=== PATIENT | female | born 1965 | race Caucasian/White ===

== ENCOUNTER 2018-06-16 23:17 | Emergency (ER) | payer OTHER, SELFPAY ==
[2018-06-16 23:29] VITALS: BP 183/96; PULSE 96; RESP 16; TEMP 37.1; O2SAT 95; BMI 48.9
[2018-06-16 23:42] LABS: Bilirubin Urine UA NEGATIVE (NEGATIVE); Color Urine UA YELLOW; Glucose Urine UA NEGATIVE (Negative); Ketones Urine UA TRACE (NEGATIVE); Leukocyte Esterase Urine UA TRACE (NEGATIVE); Nitrite Urine UA NEGATIVE (Negative); Occult Blood Urine UA 3+ (Negative); Protein Urine UA NEGATIVE (Negative); Specific Gravity Urine UA 1.015 (1.000-1.035); Urobilinogen Urine UA 0.2 E.U./dL (0.2); pH Urine UA 6.5 (4.5-8.0)
[2018-06-16 23:46] LABS: Appearance Urine UA Cloudy
[2018-06-16] MEDS: SODIUM CHLORIDE 0.9% 1,000 ML 1000 ML IV (23:59)
--- NOTE | 2018-06-17 | DI.US.S_ITS ---
PROCEDURE: US RENAL COMPLETE INDICATIONS: LEFT FLANK PAIN; HISTORY STONES TECHNIQUE: Real-time scanning was performed of the kidneys and bladder, with image documentation. COMPARISON: Merged With [facility], CT, CT KIDNEY URETER BLADDER (KUB), 06/17/2018, 0:50. FINDINGS: Kidneys: Patient is status post prior partial right nephrectomy. Kidneys are normal in size. Right kidney measures 10.6 cm long; left kidney measures 13.0 cm long. Right renal cortical thickness is 1.4 cm; left renal cortical thickness is 2.3 cm. multiple bilateral renal stones are noted. Right renal stone measures 1.0 cm in maximum diameter. 2 left renal stones measure 1.6 and 0.8 cm in maximum diameter. Moderate left-sided hydronephrosis noted. Bladder: Urinary bladder was completely decompressed at time of imaging. Miscellaneous: No free pelvic fluid. IMPRESSION: 1. Multiple bilateral renal stones. 2. Moderate left-sided hydronephrosis. Dictated by: Rebecca Reid MD, PhD on 06/17/2018 at 7:41 Approved by: Rebecca Reid MD, PhD on 06/17/2018 at 7:49
[2018-06-17 00:04] LABS: Bacteria Urine Few (2-10); RBC Urine 30-100/HPF (0-5/HPF); Squamous Epithelial Cell Urine 1-5 /HPF; WBC Urine 0-1/HPF (0-5/HPF)
[2018-06-17 00:05] LABS: Culture Indicated Urine Specimen Cultured
[2018-06-17 00:20] LABS: Alanine Aminotransferase 35 IU/L (9-52); Albumin 4.2 g/dL (3.5-5.0); Albumin Globulin Ratio 1.6 (1.0-2.8); Alkaline Phosphatase 83 U/L (38-126); Aspartate Aminotransferase 37 IU/L (14-36); Bilirubin Total 0.4 mg/dL (0.2-1.3); Blood Urea Nitrogen 28 mg/dL (7-17); Calcium 11.1 mg/dL (8.4-10.2); Carbon Dioxide 30 mmol/L (22-32); Chloride 106 mmol/L (98-107); Estimated Glomerular Filt Rate > 60.0 mL/min (>60); Globulin 2.7 g/dL (1.7-4.1); Glucose 145 mg/dL (70-100); HEMOLYSIS 17 (0-50); Potassium 3.9 mmol/L (3.4-5.1); Sodium 141 mmol/L (137-145); Total Protein 6.9 g/dL (6.3-8.2)
[2018-06-17 00:23] LABS: Basophils Absolute Auto 100 /uL (0-100); Basophils Percent Auto 0.7 % (0-2); Eosinophils Absolute Auto 100 /uL (0-450); Hematocrit 49.4 % (36-46); Hemoglobin 16.7 g/dL (12.0-16.0); Lymphocytes Absolute Auto 1200 /uL (1100-4500); Mean Corpuscular HGB Conc 33.9 % (30-36); Mean Corpuscular Hemoglobin 31.6 PG (26-34); Mean Corpuscular Volume 93.1 fL (80-100); Monocytes Absolute Auto 1300 /uL (0-900); Monocytes Percent Auto 9.1 % (3-14); Neutrophils Absolute Auto 11900 /uL (1500-7000); Neutrophils Percent Auto 81.2 % (50-75); Platelet Count 217 X10^3/uL (150-400); Red Cell Distribution Width 14.2 % (11.6-14.8); White Blood Cell Count 14.6 X10^3/uL (4.5-11.0)
[2018-06-17 00:24] LABS: Add Manual Diff / Slide Review SLIDE REVIEW
--- NOTE | 2018-06-17 00:36 | DI.CT.S_ITS ---
PROCEDURE: CT KIDNEY URETER BLADDER (KUB) INDICATIONS: Left flank pain, hydronephrosis, partial nephrectomy on Right from cancer TECHNIQUE: Noncontrast 5 mm thick sections acquired from the diaphragms to the symphysis. 5 mm thick coronal and sagittal reformats were then performed. For radiation dose reduction, the following was used: automated exposure control, adjustment of mA and/or kV according to patient size. COMPARISON: [facility], CT, IVP (ABD & PEL WWO CONTRAST), 01/26/2017, 9:50. [facility], CT, KIDNEY/ URETER/BLADDER, 08/27/2011, 14:17. FINDINGS: Image quality: Excellent. Lung bases: Lung bases are clear. Heart size is normal. Urinary system: There are multiple renal calculi bilaterally. There is a 6 mm stone in the proximal left ureter just beyond the left ureterovesical junction causing mild left hydronephrosis. The left kidney is edematous and demonstrates moderate perinephric stranding and a small amount of perinephric fluid. Approximately additional 15 stones are seen in the left kidney measuring up to 8 mm. there are 15-20 stones in the right kidney. No right hydronephrosis or hydroureter. There is partial right nephrectomy. Bladder wall thickness is normal; no calcified bladder stones. Other solid organs: There is chronic pneumobilia. Liver is normal in size. Gallbladder is absent. Pancreas is normal in contours. Spleen is normal in size. Stable 1 cm left adrenal nodule with hazy density compatible with an adenoma. Peritoneum and bowel: Unenhanced bowel loops demonstrate normal wall thickness and caliber. Multiple colonic diverticula are present. No free fluid or air. Nodes and vessels: No retroperitoneal or mesenteric adenopathy by size criteria. Aorta and inferior vena cava are normal in caliber. Abdominal wall: There is a small umbilical hernia. Pelvis: Uterus is unremarkable. No adnexal mass. No free pelvic fluid. No inguinal hernias or adenopathy. Bones: No suspicious bony lesions. No vertebral body compression fractures. IMPRESSION: 1. Nephrolithiasis bilaterally. There is a 6 mm of patent stone in the proximal left ureter just beyond the left UPJ. There is mild left hydronephrosis and moderate left perinephric stranding. 2. Pneumobilia. 3. Small umbilical hernia. 4. Small left adrenal adenoma. No significant discrepancy with the evening or night nurse supervisor radiology preliminary report. Dictated by: Charis Valdovinos M.D. on 06/17/2018 at 7:52 Approved by: Charis Valdovinos M.D. on 06/17/2018 at 8:03
--- NOTE | 2018-06-17 02:05 | ED_ITS ---
HPI - Female Genitourinary General Chief complaint: Urogenital-Female Stated complaint: Left flank pain, thinks kidney stone Time Seen by Provider: 06/16/18 23:22 Source: patient Mode of arrival: ambulatory Limitations: no limitations History of Present Illness HPI Narrative: 53-year-old female nonsmoker with history of kidney stones presents with a chief complaint of left flank pain that started while at rest earlier tonight. She states the pain was sharp and stabbing and without provocation or palliation. She was nauseated but denies any vomiting. She has had no fever or shaking chills. she states it feels quite similar to prior kidney stones. She was seen by the medics on [facility] and given IM Toradol sent here for evaluation Onset (ago): hour(s) Female Urogenital Radiation: L Flank Severity: severe Quality: Aching and Burning Relieving factors: none Exacerbating factors: none Patient : No Related Data Home Medications Medication Instructions Recorded Confirmed albuterol sulfate [Ventolin HFA] 1 puff INH PRN #0 10/31/11 levothyroxine [Synthroid] 75 mcg PO QDAY #0 10/31/11 ACETAMINOPHEN #0 10/06/15 ibuprofen #0 10/06/15 tramadol #0 10/06/15 Previous Rx's Medication Instructions Recorded ciprofloxacin HCl [Cipro] 500 mg PO BID #20 tab 10/07/15 hydrocodone-acetaminophen 1 tab PO Q4-6H PRN #10 tab 06/17/18 ketorolac 10 mg PO Q6H PRN #14 tab 06/17/18 ondansetron 4 mg PO TID-QID PRN #10 tab 06/17/18 tamsulosin [Flomax] 0.4 mg PO DAILY #10 cap 06/17/18 Allergies Allergy/AdvReac Type Severity Reaction Status Date / Time codeine [CODEINE] AdvReac Mild nausea/vomi Verified 06/16/18 23:29 ting Review of Systems Constitutional Denies chills, Denies fever(s), Denies lethargy and Denies weakness Eyes Denies change in vision, Denies eye discharge, Denies irritation and Denies loss of vision ENT Ears, Nose, Mouth, and Throat: Denies change in voice, Denies neck pain and Denies sore throat Cardiovascular Denies chest pain, Denies irregular heart rhythm, Denies lightheadedness, Denies palpitations, Denies dyspnea, Denies dyspnea on exertion and Denies orthopnea Respiratory Denies cough, Denies dyspnea, Denies dyspnea on exertion and Denies wheezing Gastrointestinal Gastrointestinal: Denies abdominal pain, Denies change in bowel habits, Denies diarrhea, Denies nausea and Denies vomiting Genitourinary Denies hematuria, Reports flank pain, Denies urinary incontinence and Denies urinary urgency Musculoskeletal Denies neck pain Integumentary/Breasts Denies pruritus, Denies erythema, Denies rash and Denies wounds Neurologic Denies confusion, Denies loss of vision and Denies weakness Psychiatric Denies anxiety, Denies confusion, Denies depression, Denies homicidal ideation and Denies suicidal ideation Endocrine Denies palpitations Hematologic/Lymphatic Denies easy bruising Allergic/Immunologic Denies wheezing Exam Narrative Exam Narrative: GENERAL: 53-year-old female appears stated age, appears relatively comfortable HEAD: Atraumatic. Normocephalic. No temporal or scalp tenderness. EYES: Pupils equal round and reactive. Extraocular motions intact. No scleral icterus. No injection or drainage. ENT: Nose without bleeding, purulent drainage or septal hematoma. Throat without erythema, tonsillar hypertrophy or exudate. Uvula midline. Airway patent. NECK: Trachea midline. No JVD or lymphadenopathy. Supple, nontender, no meningeal signs. CARDIOVASCULAR: Regular rate and rhythm without murmurs, gallops, or rubs. RESPIRATORY: Clear to auscultation. Breath sounds equal bilaterally. No wheezes, rales, or rhonchi. GASTROINTESTINAL: Abdomen soft, non-tender, nondistended. No hepato-s plenomegaly, or palpable masses. No guarding. EXTREMITIES: No clubbing, cyanosis, or edema. No joint tenderness, effusion, or edema noted. BACK: Nontender without deformity or crepitance. No flank tenderness. NEURO: AOx3. SKIN: No rash or erythema. Initial Vital Signs Initial Vital Signs: Vital Signs Temperature 98.7 F 06/16/18 23:29 Pulse Rate 96 H 06/16/18 23:29 Respiratory Rate 16 06/16/18 23:29 Blood Pressure 183/96 H 06/16/18 23:29 Pulse Oximetry 95 06/16/18 23:29 Course Orders Ordered: ED Orders 06/16/18 23:30 Urinalysis and Microscopic Stat Urine Culture Stat 06/16/18 23:59 Complete Blood Count AUTO DIFF Stat Comprehensive Metabolic Panel Stat 06/17/18 00:00 US renal complete Stat 06/17/18 00:36 CT kidney ureter bladder (KUB) Stat Discontinued Medications Hydrocodone Bitart/Acetaminophen (Vicodin Prepack) 1 bottle MISC SEEINSTR ONE Stop: 06/17/18 02:12 Last Admin: 06/17/18 02:16 Dose: 1 bottle Sodium Chloride (Normal Saline 0.9%) 1,000 mls @ 1,000 mls/hr IV BOLUS ONE Stop: 06/17/18 00:44 Last Infusion: 06/17/18 02:05 Dose: 0 mls/hr Admin: 06/16/18 23:59 Dose: 1,000 mls/hr Ketorolac Tromethamine (Toradol) 15 mg IV NOW ONE Stop: 06/16/18 23:46 Last Admin: 06/16/18 23:59 Dose: Not Given Ketorolac Tromethamine (Toradol) 60 mg IM NOW ONE Stop: 06/17/18 02:12 Last Admin: 06/17/18 02:17 Dose: 60 mg Vital Signs - 8 hr 06/16/18 23:29 Temperature 98.7 F Pulse Rate 96 H Respiratory Rate 16 Blood Pressure 183/96 H Pulse Oximetry 95 MDM - Female Genitourinary Lab Data Result diagrams: 06/16/18 23:59 06/16/18 23:59 Lab Results 06/16/18 06/16/18 06/16/18 Range/Units 23:30 23:59 23:59 WBC 14.6 H (4.5-11.0) X10^3/uL RBC 5.30 H (4.0-5.2) X10^6/uL Hgb 16.7 H (12.0-16.0) g/dL Hct 49.4 H (36-46) % MCV 93.1 (80-100) fL MCH 31.6 (26-34) PG MCHC 33.9 (30-36) % RDW 14.2 (11.6-14.8) % Plt Count 217 (150-400) X10^3/uL Neut % (Auto) 81.2 H (50-75) % Lymph % (Auto) 8.0 L (25-40) % [place] % (Auto) 9.1 (3-14) % Eos % (Auto) 1.0 L (2-4) % Baso % (Auto) 0.7 (0-2) % Neut # (Auto) 75985 H (3734-6823) /uL Lymph # (Auto) 1200 (9613-1481) /uL [place] # (Auto) 1300 H (0-900) /uL Eos # (Auto) 100 (0-450) /uL Baso # (Auto) 100 (0-100) /uL RBC Morphology Normal morphology Sodium 141 (137-145) mmol/L Potassium 3.9 (3.4-5.1) mmol/L Chloride 106 (98-107) mmol/L Carbon Dioxide 30 (22-32) mmol/L BUN 28 H (7-17) mg/dL Creatinine 0.80 (0.52-1.04) mg/dL Estimated GFR > 60.0 (>60) mL/min BUN/Creatinine Ratio 35.0 H (6-22) Glucose 145 H (70-100) mg/dL Calcium 11.1 H (8.4-10.2) mg/dL Total Bilirubin 0.4 (0.2-1.3) mg/dL AST 37 H (14-36) IU/L ALT 35 (9-52) IU/L Alkaline Phosphatase 83 (38-126) U/L Total Protein 6.9 (6.3-8.2) g/dL Albumin 4.2 (3.5-5.0) g/dL Globulin 2.7 (1.7-4.1) g/dL Albumin/Globulin Ratio 1.6 (1.0-2.8) Urine Color Yellow Urine Appearance Cloudy Urine pH 6.5 (4.5-8.0) Ur Specific [place] 1.015 (1.000-1.035) Urine Protein Negative (Negative) Urine Glucose (UA) Negative (Negative) g/dL Urine Ketones Trace H (NEGATIVE) Urine Occult Blood 3+ H (Negative) Urine Nitrate Negative (Negative) Urine Bilirubin Negative (NEGATIVE) Urine Urobilinogen 0.2 (0.2) E.U./dL Ur Leukocyte Esterase Trace H (NEGATIVE) Urine RBC 30-100/hpf H (0-5/HPF) Urine WBC 0-1/hpf (0-5/HPF) Ur Squamous Epith Cells 1-5 /hpf Urine Bacteria Few (2-10) H (None) Ur Culture Indicated? Specimen cultured Imaging Data US - abdomen: Radiologist's impression: Bilateral kidney stones, suspect left ureteral calculus creating mild hydro ureteral nephrosis CT scan - abdomen: Radiologist's impression: Multiple bilateral kidney stones. Proximal and mid left ureteral calculi grating moderate left hydronephrosis and significant left perinephric stranding. [facility] Narrative Medical decision making narrative: Patient presents with severe flank pain and a history of kidney stones. She was given Toradol prior to her arrival and is th largely asymptomatic for the majority of her visit. Ultrasound noted hydro and therefore we progressed to a CT which notes a 5 x 4 mm stone. She does have a mild elevated white count but no signs of infection on the urine. She has an established relationship with a local urologist and will follow up closely with them. She has been given return precautions. Discharge Plan Departure Patient Disposition: Home Clinical Impression: Kidney calculi Instructions: DI for Kidney Stones Activity Restrictions/Additional Instructions: *You have been diagnosed with [ left-sided kidney stones] *What to do: *Take medications as directed *Follow up with your urologist in 2-3 days, call for an appointment. Let them know you were seen in the Emergency Department and that we ask that you be seen in follow up *Return to ER if you should have any new, worsening or concerning symptoms, such as [ fever, shaking chills, worsening pain, persistent vomiting or other bothersome symptoms] Prescriptions: New hydrocodone-acetaminophen 5-325 mg tablet 1 tab PO Q4-6H PRN (Reason: pain) Qty: 10 RF: 0 ketorolac 10 mg tablet 10 mg PO Q6H PRN (Reason: pain) Qty: 14 RF: 0 tamsulosin [Flomax] 0.4 mg capsule 0.4 mg PO DAILY Qty: 10 RF: 0 ondansetron 4 mg tablet,disintegrating 4 mg PO TID-QID PRN (Reason: nausea and vomiting) Qty: 10 RF: 0 No Action levothyroxine [Synthroid] 75 MCG tablet 75 mcg PO QDAY Qty: 0 RF: 0 albuterol sulfate [Ventolin HFA] 90 MCG/PUFF HFA aerosol inhaler 1 puff INH PRN Qty: 0 RF: 0 ibuprofen 800 MG tablet Qty: 0 RF: 0 tramadol 50 MG tablet Qty: 0 RF: 0 ACETAMINOPHEN Qty: 0 RF: 0 ciprofloxacin HCl [Cipro] 500 MG tablet 500 mg PO BID Qty: 20 RF: 0 Referrals: Matthew Golden DO [Non-Staff] - Loy Lee MD [Primary Care Provider] -
[2018-06-17] MEDS: HYDROCODONE/ACET 5/325 PREPACK 1 BOTTLE MISC (02:16)
[2018-06-17] MEDS: KETOROLAC 60 MG/2 ML VIAL IM (02:17)
[2018-06-17 02:18] LABS: RBC Morphology Normal Morphology
[2018-06-17 02:28] VITALS: BP 179/91; PULSE 79; RESP 18; O2SAT 100
--- NOTE | 2018-06-17 02:31 | PC.NURSE ---
pt c/o left flank pain woke her from sleeping. called medics [place] who gave pt torodal and told her to follow up here. pt has known kidney stones, states recently evaluated by urologist. stones now causing pain.
== END 2018-06-17 02:31 | disposition home or self-care (01) ==
PROVIDERS: Emergency Provider Emergency Medicine; Family Provider Family Medicine; PCP Family Medicine
DX: N20.0 Calculus of kidney (principal)
CPT/HCPCS: 36591; 74176; 76770; 80053; 81001; 85025; 87086; 96360; 96361; 96372; 99283; 99284; J1885

== ENCOUNTER 2019-05-14 20:23 | Emergency (ER) | payer OTHER, SELFPAY ==
--- NOTE | 2019-05-14 20:30 | ED_ITS ---
HPI - Neck Pain/Injury General Chief Complaint: Back Pain/Injury Stated Complaint: thinks kidney stones Time Seen by Provider: 05/14/19 20:28 Source: patient and old records reviewed Mode of arrival: Ambulatory Limitations: no limitations History of Present Illness HPI Narrative: This is a 54-year-old female who comes in with complaint of left flank pain and concern for kidney stone. Patient states she has had kidney stones in the past she lives on [facility] and states that they gave her Toradol about 5:00 a.m. this evening which typically resolves her pain but did not completely it did improve it. She has not had fevers. She has had nausea but no vomiting. She states the pain is in the typical location but the lack of improvement with Toradol is different. She denies any radiation to the front of her abdomen. She denies any diarrhea constipation or stool changes. She denies any frequency, dysuria urgency no vaginal bleeding or discharge. She normally takes narcotic pain medication she missed 1 dose today. She states there is also a lump found in her back that her primary care shoulder was a lipoma today but it was tender when they were palpating it. Patient has a history of chronic back pain which is why she takes pain medication. She states she has an L4 herniated disc and is followed regularly by her physician for this. Patient states she has a history of hyperparathyroidism and had her parathyroids removed. Related Data Home Medications Medication Instructions Recorded Confirmed albuterol sulfate [Ventolin HFA] 1 puff INH PRN #0 10/31/11 levothyroxine [Synthroid] 75 mcg PO QDAY #0 10/31/11 ACETAMINOPHEN #0 10/06/15 ibuprofen #0 10/06/15 tramadol #0 10/06/15 Previous Rx's Medication Instructions Recorded ciprofloxacin HCl [Cipro] 500 mg PO BID #20 tab 10/07/15 hydrocodone-acetaminophen 1 tab PO Q4-6H PRN #10 tab 06/17/18 ketorolac 10 mg PO Q6H PRN #14 tab 06/17/18 ondansetron 4 mg PO TID-QID PRN #10 tab 06/17/18 tamsulosin [Flomax] 0.4 mg PO DAILY #10 cap 06/17/18 ketorolac 10 mg PO Q6H PRN 5 Days #7 tab 05/14/19 Allergies Allergy/AdvReac Type Severity Reaction Status Date / Time codeine [CODEINE] AdvReac Mild nausea/vomi Verified 06/16/18 23:29 ting Review of Systems Review of Systems ROS Unobtainable: All systems reviewed & are unremarkable except as noted in HPI and below Patient History Social History Smoking Status: Current every day smoker Exam Initial Vital Signs Initial Vital Signs: Vital Signs Temperature 98.7 F 05/14/19 21:18 Pulse Rate 100 H 05/14/19 21:18 Respiratory Rate 20 05/14/19 21:18 Blood Pressure 199/102 H 05/14/19 21:18 Pulse Oximetry 95 05/14/19 21:18 GENERAL: Alert and oriented x three, obese female in [id number] distress HEENT: Head normocephalic, atraumatic, EOMI, pupils reactive, face symmetric, moist mucous membranes NECK: Supple, full range of motion CARDIOVASCULAR: Regular rate and rhythm without murmurs, rubs or gallops. RESPIRATORY: Breath sounds equal bilaterally, no wheezes rales or rhonchi. ABDOMEN: Soft, nontender. Normoactive bowel sounds all 4 quadrants. No gua rding or rebound, rigidity, no mass : No CVA tenderness BACK: No cervical, thoracic or lumbar vertebral point tenderness. Patient has a several cm lump in the left flank, mildly tender. Unable to visualize any skin changes, feels to be deep in the muscle/subcutaneous tissue. Patient has normal range of motion. Patient's gait is normal. Muscle strength is 5/5 in lower extremities. Sensation intact bilateral lower extremities. EXTREMITIES: Normal range of motion, no clubbing or edema. Neurovascularly intact NEUROLOGICAL: Cranial nerves II through XII grossly intact. Moving all extrem ities SKIN: Warm, dry, no petechiae, no rashes or lesions. Course Orders Ordered: ED Orders 05/14/19 20:45 Urinalysis and Microscopic Stat 05/14/19 20:50 CT kidney ureter bladder (KUB) Stat 05/14/19 21:10 Complete Blood Count AUTO DIFF Stat Comprehensive Metabolic Panel Stat Lipase Stat Discontinued Medications Hydrocodone Bitart/Acetaminophen (Vicodin 5/325 Prepack) 1 bottle MISC SEEINSTR ONE Stop: 05/14/19 22:22 Last Admin: 05/14/19 22:35 Dose: 1 bottle Documented by: SHRUTHI Morphine Sulfate (Morphine) 4 mg IV NOW ONE Stop: 05/14/19 20:52 Last Admin: 05/14/19 21:15 Dose: 4 mg Documented by: SEBAS Vital Signs Vital signs: Vital Signs - 8 hr 05/14/19 21:18 05/14/19 22:44 Temperature 98.7 F Pulse Rate 100 H 68 Respiratory Rate 20 16 Blood Pressure 199/102 H Pulse Oximetry 95 98 MDM - Neck Pain/Injury Lab Data Attestation: I reviewed the patient's lab results. Result diagrams: 05/14/19 21:10 05/14/19 21:10 Labs: Lab Results 05/14/19 05/14/19 05/14/19 Range/Units 20:45 21:10 21:10 WBC 10.8 (4.5-11.0) X10^3/uL RBC 5.15 (4.0-5.2) X10^6/uL Hgb 16.2 H (12.0-16.0) g/dL Hct 47.8 H (36-46) % MCV 92.9 (80-100) fL MCH 31.4 (26-34) PG MCHC 33.8 (30-36) % RDW 14.1 (11.6-14.8) % Plt Count 227 (150-400) X10^3/uL Neut % (Auto) 83.2 H (50-75) % Lymph % (Auto) 9.8 L (25-40) % [place] % (Auto) 3.4 (3-14) % Eos % (Auto) 0.7 L (2-4) % Baso % (Auto) 2.9 H (0-2) % Neut # (Auto) 9000 H (9424-9453) /uL Lymph # (Auto) 1100 (2967-3182) /uL [place] # (Auto) 400 (0-900) /uL Eos # (Auto) 100 (0-450) /uL Baso # (Auto) 300 H (0-100) /uL Sodium 144 (137-145) mmol/L Potassium 4.6 (3.4-5.1) mmol/L Chloride 107 (98-107) mmol/L Carbon Dioxide 31 (22-32) mmol/L BUN 19 H (7-17) mg/dL Creatinine 0.50 L (0.52-1.04) mg/dL Estimated GFR > 60.0 (>60) mL/min BUN/Creatinine Ratio 38.0 H (6-22) Glucose 161 H (70-100) mg/dL Calcium 11.4 H (8.4-10.2) mg/dL Total Bilirubin 0.5 (0.2-1.3) mg/dL AST 40 H (14-36) IU/L ALT 28 (<35) IU/L Alkaline Phosphatase 75 (38-126) U/L Total Protein 7.3 (6.3-8.2) g/dL Albumin 4.1 (3.5-5.0) g/dL Globulin 3.2 (1.7-4.1) g/dL Albumin/Globulin Ratio 1.3 (1.0-2.8) Lipase (23-300) U/L Urine Color Yellow Urine Appearance Clear Urine pH 6.5 (4.5-8.0) Ur Specific [place] 1.020 (1.000-1.035) Urine Protein Negative (Negative) Urine Glucose (UA) Negative (Negative) g/dL Urine Ketones Negative (NEGATIVE) Urine Occult Blood Negative (Negative) Urine Nitrate Negative (Negative) Urine Bilirubin Negative (NEGATIVE) Urine Urobilinogen 0.2 (0.2) E.U./dL Ur Leukocyte Esterase Negative (NEGATIVE) Urine RBC None seen (0-5/HPF) Urine WBC None seen (0-5/HPF) Ur Squamous Epith Cells 0-1 /hpf (0-5/HPF) Amorphous Sediment 1+ Urine Bacteria None seen (None) Ur Culture Indicated? Cult not indicated 05/14/19 Range/Units 21:10 WBC (4.5-11.0) X10^3/uL RBC (4.0-5.2) X10^6/uL Hgb (12.0-16.0) g/dL Hct (36-46) % MCV (80-100) fL MCH (26-34) PG MCHC (30-36) % RDW (11.6-14.8) % Plt Count (150-400) X10^3/uL Neut % (Auto) (50-75) % Lymph % (Auto) (25-40) % [place] % (Auto) (3-14) % Eos % (Auto) (2-4) % Baso % (Auto) (0-2) % Neut # (Auto) (6050-4512) /uL Lymph # (Auto) (4824-0781) /uL [place] # (Auto) (0-900) /uL Eos # (Auto) (0-450) /uL Baso # (Auto) (0-100) /uL Sodium (137-145) mmol/L Potassium (3.4-5.1) mmol/L Chloride (98-107) mmol/L Carbon Dioxide (22-32) mmol/L BUN (7-17) mg/dL Creatinine (0.52-1.04) mg/dL Estimated GFR (>60) mL/min BUN/Creatinine Ratio (6-22) Glucose (70-100) mg/dL Calcium (8.4-10.2) mg/dL Total Bilirubin (0.2-1.3) mg/dL AST (14-36) IU/L ALT (<35) IU/L Alkaline Phosphatase (38-126) U/L Total Protein (6.3-8.2) g/dL Albumin (3.5-5.0) g/dL Globulin (1.7-4.1) g/dL Albumin/Globulin Ratio (1.0-2.8) Lipase 167 (23-300) U/L Urine Color Urine Appearance Urine pH (4.5-8.0) Ur Specific [place] (1.000-1.035) Urine Protein (Negative) Urine Glucose (UA) (Negative) g/dL Urine Ketones (NEGATIVE) Urine Occult Blood (Negative) Urine Nitrate (Negative) Urine Bilirubin (NEGATIVE) Urine Urobilinogen (0.2) E.U./dL Ur Leukocyte Esterase (NEGATIVE) Urine RBC (0-5/HPF) Urine WBC (0-5/HPF) Ur Squamous Epith Cells (0-5/HPF) Amorphous Sediment Urine Bacteria (None) Ur Culture Indicated? Imaging Data CT scan - abdomen/pelvis: Radiologist's Impression: [address] [address] [address] Scan Report Signed Patient: Petye Harris RMR#: [id number] : 1965Acct:[id number] Age/Sex: 54 / FDate of Service: 05/14/19 Loc: ED Accession Number: [id number] Procedure: CT kidney ureter bladder (KUB) Ordering Provider: Kirstie Gutierrez D.O. PROCEDURE: CT KIDNEY URETER BLADDER (KUB) INDICATIONS: left flank pain, hx of stones TECHNIQUE: Noncontrast 5 mm thick sections acquired from the diaphragms to the symphysis. 5 mm thick coronal and sagittal reformats were then performed. For radiation dose reduction, the following was used: automated exposure control, adjustment of mA and/or kV according to patient size. COMPARISON: [facility], CT, CT KIDNEY URETER BLADDER (KUB), 06/17/2018, 0:50. FINDINGS: Image quality: Excellent. Lung bases: Lung bases are clear. Heart size is normal. Urinary system: Surgical clips adjacent to the right kidney. Right kidney scarring. Both kidneys are normal in size. Multiple kidney stones bilaterally. No obstructing calculus. The previously seen obstructing calculi in the proximal left ureter are no longer present. No hydronephrosis or perinephric fat stranding. Both ureters appear non-dilated throughout their expected courses. Bladder wall thickness is normal; no calcified bladder stones. Other solid organs: Liver is normal in size. Gallbladder is absent. Bile ducts are dilated with pneumobilia. Calcifications in the uncinate process and head of the pancreas do to chronic calcific pancreatitis. Pancreas is normal in contours. Spleen is normal in size. Benign left adrenal adenoma. Peritoneum and bowel: Diverticulosis. Unenhanced bowel loops demonstrate normal wall thickness and caliber. No free fluid or air. Nodes and vessels: No retroperitoneal or mesenteric adenopathy by size criteria. Aorta and inferior vena cava are normal in caliber. Abdominal wall: Small amount of fluid in the periumbilical hernia. Pelvis: No free pelvic fluid. No inguinal hernias or adenopathy. Bones: No suspicious bony lesions. No vertebral body compression fractures. Extensive degenerative change at L4-L5 and L5-S1. IMPRESSION: 1. Increased biliary ductal dilatation. Similar pneumobilia. 2. No obstructing kidney stone. Multiple nonobstructing kidney stones bilaterally which are similar in appearance. 3. The appendix is normal. 4. Small amount of free fluid in the periumbilical hernia similar to prior exam. Incidental findings: Diverticulosis. Chronic calcific pancreatitis. Dictated by: Landon Dacosta M.D. on 05/14/2019 at 21:41 Approved by: Landon Dacosta M.D. on 05/14/2019 at 21:53 MDM Narrative Medical decision making narrative: Patient comes in with left flank pain, states that she has similar symptoms with kidney stones but that it did improve with Toradol which typically and she also has feels like a lipoma that is a little bit tender. Plan for some further evaluation, urine and labs show no leukocytosis with hemoglobin of 16 and hematocrit of 47 similar to June of 2018 patient has neutrophils of 83%, patient has electrolytes in normal range with a BUN of 19 and normal renal function. Glucose is 161, patient does have an e levated calcium of 11.4 which is consistent with prior with prior labs, bilirubin is negative, AST is 40 with normal ALT and normal lipase. Urine shows other than 0-1 squamous epithelials. On imaging no kidney stones are noted in the ureter but patient does have multiple kidney stones within the kidney itself bilaterally. Gallbladder is absent and bile ducts are dilated with pneumobilia. Calcifications in the uncinate process due to chronic calcific pancreatitis. Benign left adrenal adenoma. Patient has a small amount of fluid in the gagan umbilical hernia, patient has extensive degenerative changes L4-L5 and L5-S1. Appendix is normal. And small amount of free fluid is similar to prior exam. Patient does have some left flank pain this evening. She is improved with Toradol that she received from medics and after medication here she feels She does have what feels like a lipoma is mildly tender but patient does not have any physical signs of infection or abscess in that area there is no redness or skin changes, she has been afebrile and the area feels more firm and very consistent with a lipoma and does not feel consistent with an abscess or fluid collection. Patient does have known degenerative changes which are redemonstrated on her CT possibly this could be her back pain although typically that is lower and radiates more down her leg. Plan for watchful waiting discu ssed with patient. She has a general surgeon she follows with at [facility] and plans to follow up regarding lump in her back for further evaluation. Discharge Plan Departure Patient Disposition: Home Clinical Impression: Flank pain Discharge Date/Time: 05/14/19 22:46 Instructions: DI for Flank Pain Activity Restrictions/Additional Instructions: Follow up with primary care this week for recheck. Take medication as prescribed, this medication can make you sleepy do not drive, perform hazardous activities or make any major decisions while taking it. I suspect you have a lipoma in your left flank and recommend follow up with your general surgeon at [facility] for evaluation if this continues to seem to be the source of your pain. Return to ER for fevers greater than 100.4F, passing out, new chest pain or shortness of breath black or bloody stools, persistent vomiting, rapidly worsening pain, new redness, skin changes or signs of infection over the lump in your back, loss of bowel or bladder control or new numbness, weakness of your lower extremities. Prescriptions: New ketorolac 10 mg tablet 10 mg PO Q6H PRN (Reason: pain) 5 Days Qty: 7 RF: 0 No Action levothyroxine [Synthroid] 75 MCG tablet 75 mcg PO QDAY Qty: 0 RF: 0 albuterol sulfate [Ventolin HFA] 90 MCG/PUFF HFA aerosol inhaler 1 puff INH PRN Qty: 0 RF: 0 ibuprofen 800 MG tablet Qty: 0 RF: 0 tramadol 50 MG tablet Qty: 0 RF: 0 ACETAMINOPHEN Qty: 0 RF: 0 ciprofloxacin HCl [Cipro] 500 MG tablet 500 mg PO BID Qty: 20 RF: 0 hydrocodone-acetaminophen 5-325 mg tablet 1 tab PO Q4-6H PRN (Reason: pain) Qty: 10 RF: 0 ketorolac 10 mg tablet 10 mg PO Q6H PRN (Reason: pain) Qty: 14 RF: 0 tamsulosin [Flomax] 0.4 mg capsule 0.4 mg PO DAILY Qty: 10 RF: 0 ondansetron 4 mg tablet,disintegrating 4 mg PO TID-QID PRN (Reason: nausea and vomiting) Qty: 10 RF: 0 Referrals: Loy Lee MD [Primary Care Provider] -
--- NOTE | 2019-05-14 20:50 | DI.CT.S_ITS ---
PROCEDURE: CT KIDNEY URETER BLADDER (KUB) INDICATIONS: left flank pain, hx of stones TECHNIQUE: Noncontrast 5 mm thick sections acquired from the diaphragms to the symphysis. 5 mm thick coronal and sagittal reformats were then performed. For radiation dose reduction, the following was used: automated exposure control, adjustment of mA and/or kV according to patient size. COMPARISON: [facility], CT, CT KIDNEY URETER BLADDER (KUB), 06/17/2018, 0:50. FINDINGS: Image quality: Excellent. Lung bases: Lung bases are clear. Heart size is normal. Urinary system: Surgical clips adjacent to the right kidney. Right kidney scarring. Both kidneys are normal in size. Multiple kidney stones bilaterally. No obstructing calculus. The previously seen obstructing calculi in the proximal left ureter are no longer present. No hydronephrosis or perinephric fat stranding. Both ureters appear non-dilated throughout their expected courses. Bladder wall thickness is normal; no calcified bladder stones. Other solid organs: Liver is normal in size. Gallbladder is absent. Bile ducts are dilated with pneumobilia. Calcifications in the uncinate process and head of the pancreas do to chronic calcific pancreatitis. Pancreas is normal in contours. Spleen is normal in size. Benign left adrenal adenoma. Peritoneum and bowel: Diverticulosis. Unenhanced bowel loops demonstrate normal wall thickness and caliber. No free fluid or air. Nodes and vessels: No retroperitoneal or mesenteric adenopathy by size criteria. Aorta and inferior vena cava are normal in caliber. Abdominal wall: Small amount of fluid in the periumbilical hernia. Pelvis: No free pelvic fluid. No inguinal hernias or adenopathy. Bones: No suspicious bony lesions. No vertebral body compression fractures. Extensive degenerative change at L4-L5 and L5-S1. IMPRESSION: 1. Increased biliary ductal dilatation. Similar pneumobilia. 2. No obstructing kidney stone. Multiple nonobstructing kidney stones bilaterally which are similar in appearance. 3. The appendix is normal. 4. Small amount of free fluid in the periumbilical hernia similar to prior exam. Incidental findings: Diverticulosis. Chronic calcific pancreatitis. Dictated by: Landon Dacosta M.D. on 05/14/2019 at 21:41 Approved by: Landon Dacosta M.D. on 05/14/2019 at 21:53
[2019-05-14 20:58] LABS: Bacteria Urine None Seen; RBC Urine None Seen (0-5/HPF); WBC Urine None Seen (0-5/HPF)
[2019-05-14 20:59] LABS: Appearance Urine UA CLEAR; Bilirubin Urine UA NEGATIVE (NEGATIVE); Color Urine UA YELLOW; Glucose Urine UA NEGATIVE (Negative); Ketones Urine UA NEGATIVE (NEGATIVE); Leukocyte Esterase Urine UA NEGATIVE (NEGATIVE); Nitrite Urine UA NEGATIVE (Negative); Occult Blood Urine UA NEGATIVE (Negative); Protein Urine UA NEGATIVE (Negative); Urobilinogen Urine UA 0.2 E.U./dL (0.2)
[2019-05-14 21:06] LABS: pH Urine UA 6.5 (4.5-8.0)
[2019-05-14 21:11] LABS: Amorphous Sediment Urine 1+; Culture Indicated Urine Cult Not Indicated; Squamous Epithelial Cell Urine 0-1 /HPF (0-5/HPF)
[2019-05-14] MEDS: MORPHINE 4 MG/ML INJ IV (21:15)
[2019-05-14 21:18] VITALS: BP 199/102; PULSE 100; RESP 20; TEMP 37.1; O2SAT 95; BMI 48.9
[2019-05-14 21:22] LABS: Add Manual Diff / Slide Review NO; Basophils Absolute Auto 300 /uL (0-100); Basophils Percent Auto 2.9 % (0-2); Eosinophils Absolute Auto 100 /uL (0-450); Eosinophils Percent Auto 0.7 % (2-4); Hematocrit 47.8 % (36-46); Hemoglobin 16.2 g/dL (12.0-16.0); Lymphocytes Absolute Auto 1100 /uL (1100-4500); Lymphocytes Percent Auto 9.8 % (25-40); Mean Corpuscular HGB Conc 33.8 % (30-36); Mean Corpuscular Hemoglobin 31.4 PG (26-34); Mean Corpuscular Volume 92.9 fL (80-100); Monocytes Absolute Auto 400 /uL (0-900); Monocytes Percent Auto 3.4 % (3-14); Neutrophils Absolute Auto 9000 /uL (1500-7000); Neutrophils Percent Auto 83.2 % (50-75); Platelet Count 227 X10^3/uL (150-400); Red Blood Cell Count 5.15 X10^6/uL (4.0-5.2); Red Cell Distribution Width 14.1 % (11.6-14.8); White Blood Cell Count 10.8 X10^3/uL (4.5-11.0)
[2019-05-14 21:32] LABS: Lipase 167 U/L (23-300)
[2019-05-14 21:33] LABS: Alanine Aminotransferase 28 IU/L (<35); Albumin 4.1 g/dL (3.5-5.0); Albumin Globulin Ratio 1.3 (1.0-2.8); Alkaline Phosphatase 75 U/L (38-126); Bilirubin Total 0.5 mg/dL (0.2-1.3); Blood Urea Nitrogen 19 mg/dL (7-17); Calcium 11.4 mg/dL (8.4-10.2); Carbon Dioxide 31 mmol/L (22-32); Chloride 107 mmol/L (98-107); Estimated Glomerular Filt Rate > 60.0 mL/min (>60); Globulin 3.2 g/dL (1.7-4.1); Glucose 161 mg/dL (70-100); Sodium 144 mmol/L (137-145); Total Protein 7.3 g/dL (6.3-8.2)
[2019-05-14 21:34] LABS: HEMOLYSIS 103 (0-50)
[2019-05-14 21:36] LABS: Aspartate Aminotransferase 40 IU/L (14-36)
[2019-05-14 21:37] LABS: Potassium 4.6 mmol/L (3.4-5.1)
[2019-05-14] MEDS: HYDROCODONE/ACET 5/325 PREPACK 1 BOTTLE MISC (22:35)
[2019-05-14 22:44] VITALS: PULSE 68; RESP 16; O2SAT 98
== END 2019-05-14 22:46 | disposition home or self-care (01) ==
PROVIDERS: Emergency Provider Emergency Medicine; Family Provider Family Medicine; PCP Family Medicine
DX: R10.9 Unspecified abdominal pain (principal); M54.9 Dorsalgia, unspecified
CPT/HCPCS: 36415; 74176; 80053; 81001; 83690; 85025; 96374; 99284; J2270

== ENCOUNTER 2019-05-21 12:45 | Emergency (ER) | payer OTHER, SELFPAY ==
[2019-05-21 13:37] VITALS: BP 186/87; PULSE 82; RESP 19; TEMP 36.6; O2SAT 97; BMI 48.9
--- NOTE | 2019-05-21 18:38 | ED_ITS ---
HPI - Abdominal Pain General Chief Complaint: Urogenital-Female Stated Complaint: Left Flank Pain Time Seen by Provider: 05/21/19 18:09 Source: patient Mode of arrival: Family Vehicle Limitations: no limitations History of Present Illness HPI narrative: 54-year-old female daily smoker with history of hypothyroid presents with a chief complaint of ongoing left flank pain for least 1 week. She denies any injury nor fever or chills. She has had no dysuria, frequency or urgency. She denies any nausea or vomiting. She was seen and evaluated here and had a very thorough evaluation including CT scan and lab work. CT showed no obvious explanation of her pain. She does have a kidney stone but no evidence of kidney stones in the urine or imaging was noted. Patient does have a lipoma on her left flank in the region of pain which is currently being evaluated. She has been in touch with her primary care provider and also Urology whom state this is not a kidney stone. Pain is worse with motion and improves with rest. She states it radiates around her left flank a bit. She denies any rash or injury. She denies any change in bowel habits. Related Data Home Medications Medication Instructions Recorded Confirmed albuterol sulfate [Ventolin HFA] 1 puff INH PRN #0 10/31/11 levothyroxine [Synthroid] 75 mcg PO QDAY #0 10/31/11 ACETAMINOPHEN #0 10/06/15 ibuprofen #0 10/06/15 tramadol #0 10/06/15 Previous Rx's Medication Instructions Recorded ciprofloxacin HCl [Cipro] 500 mg PO BID #20 tab 10/07/15 hydrocodone-acetaminophen 1 tab PO Q4-6H PRN #10 tab 06/17/18 ketorolac 10 mg PO Q6H PRN #14 tab 06/17/18 ondansetron 4 mg PO TID-QID PRN #10 tab 06/17/18 tamsulosin [Flomax] 0.4 mg PO DAILY #10 cap 06/17/18 ketorolac 10 mg PO Q6H PRN 5 Days #7 tab 05/14/19 Allergies Allergy/AdvReac Type Severity Reaction Status Date / Time codeine [CODEINE] AdvReac Mild nausea/vomi Verified 05/21/19 13:41 ting Review of Systems Constitutional Constitutional: Denies chills, Denies fatigue, Denies fever(s), Denies frequent falls, Denies lethargy and Denies weakness Eyes Eyes: Denies change in vision, Denies eye discharge, Denies irritation and Denies loss of vision ENT Ears, Nose, Mouth, and Throat: Denies change in voice, Denies dizziness, Denies neck pain, Denies sore throat and Denies throat swelling Cardiovascular Cardiovascular: Denies chest pain, Denies irregular heart rhythm, Denies lightheadedness, Denies palpitations, Denies dyspnea, Denies dyspnea on exertion and Denies orthopnea Respiratory Respiratory: Denies cough, Denies dyspnea, Denies dyspnea on exertion and Denies wheezing Gastrointestinal Gastrointestinal: Denies abdominal pain, Denies change in bowel habits, Denies diarrhea, Denies nausea and Denies vomiting Genitourinary Genitourinary: Denies hematuria, Reports flank pain, Denies urinary incontinence and Denies urinary urgency Musculoskeletal Musculoskeletal: Denies back pain, Denies muscle weakness, Denies neck pain, Denies numbness and Denies tingling Integumentary/Breasts Skin/Breast: Denies pruritus, Denies erythema, Denies rash and Denies wounds Neurologic Neurologic: Denies behavioral changes, Denies confusion, Denies dizziness, Denies frequent falls, Denies loss of vision, Denies numbness, Denies tingling and Denies weakness Psychiatric Psychiatric: Denies anxiety, Denies behavioral changes, Denies confusion, Denies depression, Denies homicidal ideation and Denies suicidal ideation Endocrine Endocrine: Denies fatigue, Denies flushing and Denies palpitations Hematologic/Lymphatic Hematologic/Lymphatic: Denies easy bruising Allergic/Immunologic Allergic/Immunologic: Denies urticaria, Denies throat swelling and Denies wheezing Patient History Social History Smoking Status: Current every day smoker Smoking Status: Current every day smoker tobacco type: cigars alcohol intake frequency: holidays/special occasions only Substance Use Type: marijuana Exam Narrative Exam Narrative: GENERAL: [54] year old patient appears stated age. Well- nourished, well-developed patient, in mild distress. Anxious, tearful, in pain sitting in a chair and rubbing her left flank HEAD: Atraumatic. Normocephalic. EYES: Pupils equal round and reactive. Extraocular motions intact. No scleral icterus. No injection or drainage. ENT: Nose without bleeding, purulent drainage. Throat without erythema, tonsillar hypertrophy or exudate. Airway patent. NECK: Trachea midline. Non tender CARDIOVASCULAR: Regular rate and rhythm without murmurs, gallops, or rubs. RESPIRATORY: Clear to auscultation. Breath sounds equal bilaterally. No wheezes, rales, or rhonchi. GASTROINTESTINAL: Abdomen soft, non-tender, nondistended. EXTREMITIES: No edema or joint tenderness. BACK: Tenderness to left posterior flank. Very gentle touch elicits pain. There is no rash or erythema. She has a freely movable 2 x 3 cm superficial mass in the superficial tissues of her left flank in the region of her discomfort though the mass itself does not seem to be significantly tender. There is a small amount of bruising at the inferior aspect of this ?bump? but she repeatedly denies any injury. NEURO: AOx3. SKIN: No rash or erythema of visible areas Initial Vital Signs Initial Vital Signs: Vital Signs Temperature 97.8 F 05/21/19 13:37 Pulse Rate 82 05/21/19 13:37 Respiratory Rate 19 05/21/19 13:37 Blood Pressure 186/87 H 05/21/19 13:37 Pulse Oximetry 97 05/21/19 13:37 Course Course Course Narrative: Patient requesting to leave department to go smoke, we asked that she not leave as ultrasound is coming to perform testing. Over the visit she becomes increasingly frustrated with our plan and refuses blood work, refused Toradol to help with her pain. When she asks why we are not do anything to try to figure out her discomfort attempt to discuss the labs that I had ordered as well as IV and pain medications but after discussion of risks and benefits including severe illness which could result in permanent disability or even she states that she will be fine and just wants to go home. I told her she can return immediately if she changes her mind. She has been given return precautions and has had questions answered to her apparent satisfaction Orders Ordered: ED Orders 05/21/19 21:13 Urine Microscopic Stat Discontinued Medications Sodium Chloride (Normal Saline 0.9%) 1,000 mls @ 1,000 mls/hr IV BOLUS ONE Stop: 05/21/19 19:38 Ketorolac Tromethamine (Toradol) 15 mg IV NOW ONE Stop: 05/21/19 18:40 Ketorolac Tromethamine (Toradol) 60 mg IM NOW ONE Stop: 05/21/19 20:07 Last Admin: 05/21/19 21:07 Dose: 60 mg Documented by: CASIE Lidocaine (Lidoderm) 1 each TOP NOW ONE Stop: 05/21/19 20:57 Last Admin: 05/21/19 21:07 Dose: 1 each Documented by: CASIE Vital Signs Vital signs: Vital Signs - 8 hr 05/21/19 13:37 Temperature 97.8 F Pulse Rate 82 Respiratory Rate 19 Blood Pressure 186/87 H Pulse Oximetry 97 MDM - Abdominal Pain Lab Data Point of care testing: Urine Dip Bedside Urine Glucose Negative Bedside Urine Bilirubin - Negative Bedside Urine Ketone - Negative Urine Specific [place] 1.020 Bedside Urine Occult Blood +/- Bedside Urine pH 6.5 Bedside Urine Protein - Negative Bedside Urine Urobilinogen - Negative Bedside Urine Nitrite - Negative Bedside Urine Leukocytes +/- 15 Esterase Imaging Data US - abdomen: Radiologist's Impression: Petey Harris Stacey 54 F 1965 [place] [address] Ultrasound Report Signed Patient: Petey Harris RMR#: [id number] : 1965Acct:[id number] Age/Sex: 54 / FDate of Service: 05/21/19 Loc: ED Accession Number: [id number] Procedure: US renal complete Ordering Provider: Ramo Ledezma D.O. PROCEDURE: US RENAL COMPLETE INDICATIONS: SEVERE LEFT FLANK PAIN TECHNIQUE: Real-time scanning was performed of the kidneys and bladder, with image documentation. COMPARISON: [facility], , US RENAL COMPLETE, 06/17/2018, 0:27. FINDINGS: Kidneys: Kidneys are normal in size. Right kidney measures 11.3 cm long; left kidney measures 11.1 cm long. Right renal cortical thickness is 1.6 cm; left renal cortical thickness is 1.6 cm. Renal cortical echotexture is normal. No hydronephrosis. Multiple echogenic foci are noted in lower pole of left kidney which may represent tiny stones. No suspicious solid mass lesions. Bladder: Pre-void bladder volume is 125 mL. Patient unable to void at this moment. Pre-void images demonstrate no intraluminal masses or stones. On pre-void images, bilateral ureteral jets are not noted with color Doppler interrogation. (Of note, ureteral jets may not be detectable in up to 25% of cases due to insufficient differences in specific gravity between ureteral and bladder urine). Miscellaneous: No free pelvic fluid. IMPRESSION: 1. Suggestion of tiny nonobstructing renal calculi in lower pole left kidney. 2. Normal appearing urinary bladder. 3. No hydronephrosis. No gross solid appearing renal lesion. Dictated by: Giuseppe Hammer M.D. on 05/21/2019 at 19:39 Approved by: Giuseppe Hammer M.D. on 05/21/2019 at 19:41 Discharge Plan Departure Patient Disposition: Home Clinical Impression: Flank pain Discharge Date/Time: 05/21/19 21:13 Instructions: DI for Flank Pain Activity Restrictions/Additional Instructions: *You have been diagnosed with [acute left flank pain, likely radiating pain from lipoma like mass on left flank] *What to do: *Take medications as directed *Follow up with your primary care provider in 2-3 days, call for an appointment. Let them know you were seen in the Emergency Department and that we ask that you be seen in follow up *Return to ER if you should have any new, worsening or concerning symptoms Prescriptions: No Action levothyroxine [Synthroid] 75 MCG tablet 75 mcg PO QDAY Qty: 0 RF: 0 albuterol sulfate [Ventolin HFA] 90 MCG/PUFF HFA aerosol inhaler 1 puff INH PRN Qty: 0 RF: 0 ibuprofen 800 MG tablet Qty: 0 RF: 0 tramadol 50 MG tablet Qty: 0 RF: 0 ACETAMINOPHEN Qty: 0 RF: 0 ciprofloxacin HCl [Cipro] 500 MG tablet 500 mg PO BID Qty: 20 RF: 0 hydrocodone-acetaminophen 5-325 mg tablet 1 tab PO Q4-6H PRN (Reason: pain) Qty: 10 RF: 0 ketorolac 10 mg tablet 10 mg PO Q6H PRN (Reason: pain) Qty: 14 RF: 0 tamsulosin [Flomax] 0.4 mg capsule 0.4 mg PO DAILY Qty: 10 RF: 0 ondansetron 4 mg tablet,disintegrating 4 mg PO TID-QID PRN (Reason: nausea and vomiting) Qty: 10 RF: 0 ketorolac 10 mg tablet 10 mg PO Q6H PRN (Reason: pain) 5 Days Qty: 7 RF: 0 Referrals: Loy Lee MD [Primary Care Provider] -
--- NOTE | 2019-05-21 20:17 | PC.NURSE ---
1930. went to do iv and labs/ pt refused. had us, toradol ordered, pt refused, wanted to see doctor. aware.
[2019-05-21] MEDS: KETOROLAC 60 MG/2 ML VIAL IM (21:07)
[2019-05-21] MEDS: LIDOCAINE PATCH 1 EACH ADH..PATCH TOP (21:07)
== END 2019-05-21 21:13 | disposition home or self-care (01) ==
PROVIDERS: Emergency Provider Emergency Medicine; Family Provider Family Medicine; PCP Family Medicine
DX: R10.9 Unspecified abdominal pain (principal)
CPT/HCPCS: 36415; 76770; 81003; 96372; 99284; J1885

== ENCOUNTER → 2019-05-26 08:51 | Outpatient (CLI) | payer OTHER, SELFPAY ==
[2019-05-26 10:34] LABS: Alanine Aminotransferase 21 IU/L (<35); Albumin 4.1 g/dL (3.5-5.0); Albumin Globulin Ratio 1.4 (1.0-2.8); Alkaline Phosphatase 81 U/L (38-126); Amylase 100 U/L (30-110); Aspartate Aminotransferase 28 IU/L (14-36); BUN Creatinine Ratio 38.5 (6-22); Bilirubin Total 0.3 mg/dL (0.2-1.3); Blood Urea Nitrogen 20 mg/dL (7-17); Calcium 11.1 mg/dL (8.4-10.2); Carbon Dioxide 28 mmol/L (22-32); Chloride 108 mmol/L (98-107); Estimated Glomerular Filt Rate > 60.0 mL/min (>60); Glucose 114 mg/dL (70-100); HEMOLYSIS < 15 (0-50); Lipase 212 U/L (23-300); Potassium 3.9 mmol/L (3.4-5.1); Sodium 140 mmol/L (137-145); Total Protein 7.1 g/dL (6.3-8.2)
== END ==
PROVIDERS: Family Provider Family Medicine; PCP Family Medicine; Referring Provider Physician Assistant Medical; Visit Provider Physician Assistant Medical
DX: E83.2 Disorders of zinc metabolism (principal); E21.3 Hyperparathyroidism, unspecified; I10 Essential (primary) hypertension; E03.9 Hypothyroidism, unspecified; N20.0 Calculus of kidney
CPT/HCPCS: 36415; 80053; 82150; 82310; 83690; 83970

== ENCOUNTER 2019-05-27 09:48 | Day surgery (SDC) | payer OTHER, SELFPAY ==
[2019-05-27] VITALS (7 sets, daily range): BP systolic 150–182; BP diastolic 73–98; PULSE 81–98; RESP 10–15; TEMP 36.6–36.8; O2SAT 90–96; BMI 47.2
--- NOTE | 2019-05-27 | PATH_ITS ---
[facility] Accession Number: [id number] . 01 Material submitted: . flank - LEFT FLANK MASS . 01 Diagnosis: Left Flank, Biopsy: Mature adipose tissue, consistent with lipoma. MRV 05/31/2019 1306 Local . 01 Electronically signed: . Josi Chase MD, Dermatopathologist NPI- [id number] . 01 Gross description: . Received in formalin, labeled left flank mass, is a piece of carrillo-yellow, rubbery adipose tissue (6.5 x 5.7 x 2.0 cm) with a homogeneous, unremarkable cut surface. Procedural Nurse tissue is submitted in cassettes A1-A3. ([id number]) /MRV 05/29/2019 2210 Local . 01 Pathologist provided ICD-10: D17.9 . 01 CPT . 154378 Specimen Comment: A duplicate report has been generated due to demographic updates. Performed at: [address] [address], [place], [place] [id number] MD Rene Lang MD Phone: [phone]
[2019-05-27] MEDS: LACTATED RINGERS 1,000 ML 42 ML IV (10:26)
[2019-05-27] MEDS: GABAPENTIN 300 MG CAPSULE PO (10:26)
[2019-05-27] MEDS: CELECOXIB 200 MG CAPSULE 400 MG PO (10:26)
[2019-05-27] MEDS: ACETAMINOPHEN 325 MG TABLET 975 MG PO (10:28)
[2019-05-27] MEDS: SCOPOLAMINE 1 PATCH TOP (10:28)
--- NOTE | 2019-05-27 10:58 | PM.PREOP ---
Pre-operative Note Interval Note History & Physical reviewed/Exam performed by Physician: Yes Changes to H&P: No
[2019-05-27] MEDS: CEFAZOLIN VIAL 3 GM in SODIUM CHLORIDE 0.9% 100 ML 200 ML IV (11:29)
--- NOTE | 2019-05-27 12:01 | SUR.OPER ---
Lateral on padded OR bed, head on pillow, gel axillary roll in place, bottom leg bent with gel pad under knee to foot, upper leg straight and supported with pillows. Upper arm supported by pillows and secured over bottom arm to padded arm board. Safety belt at hip, tape over blanket lower legs.
[2019-05-27] MEDS: BUPIVACAINE 0.25% W/ EPI 30 ML VIAL INJ (12:09)
--- NOTE | 2019-05-27 12:42 | PM.OP.1 ---
Operative Date/Time/Diagnoses Date of procedure: 05/27/19 Time of procedure: 12:43 Pre-op diagnosis: painful left flank mass Post-op diagnosis: other (left flank fatty mass 6cm x4cm x 8cm) Procedure & Clinicians Procedure: Excision of left flank mass Same procedure as scheduled: Yes Indications: Pain, unknown malignant potential Surgeon: Yudith So Click Yes if Unassisted: Yes Anesthesia Type: General Operative Notes Findings: large fatty mass involving muscle and fascia Closure Type: primary Specimen(s): other (left flank mass) Estimated Blood Loss (mL): 1 Blood products transfused: none Procedure in detail: Patient was brought to the operating and placed supine on the operating table. Sequential compression devices were placed on both legs and turned on. General anesthesia was induced the patient was intubated with an ET tube by Dr. Pitts. We were then able to remove her tongue ring safely once she was under sedation. We put it aside in a specimen cup for the patient. The patient was then positioned in right lateral decubitus position with all bony prominences padded. The patient was secured in place with a beanbag, and with medical tape. We then prepped and draped the area of the left flank mass in sterile fashion. Surgical time-out was conducted. Local anesthetic was injected in a skin crease overlying the mass. An 8 cm incision was then made with the 10 blade. Cautery was used to dissect down through the skin and dermis, and through about 2 cm of subcutaneous fat tissue. I then reached the mobile fatty mass, and found that it was covered with bands of muscle and attached to the muscle fascia. It was carefully dissected free from the muscle and fascia. Dissection is carried circumferentially both blunt and sharp dissection was used to ultimately remove the entire mass which was 6 cm x 8 cm x 4 cm in size. The mass was entirely removed and passed off the table for pathology. Hemostasis was then achieved using electrocautery. The wound was then closed in layers using 2 layers of 3 0 Vicryl and 1 layer of 4 Monocryl in the subcuticular. I then sealed the skin edges with Dermabond. Complications: none Post-operative Condition: stable Disposition: PACU
[2019-05-27] MEDS: OXYCODONE IR 5 MG TABLET PO (12:45)
[2019-05-27] MEDS: ONDANSETRON 4 MG/2 ML INJ IV (12:45)
--- NOTE | 2019-05-27 13:01 | SUR.PHASEI ---
Patient sitting up, drinking coffee.
--- NOTE | 2019-05-27 13:20 | SUR.PHASEI ---
Discharge instructions reviewed with patient and family. RX given to family to fill at [facility].
--- NOTE | 2019-05-27 13:35 | SUR.PHASEII ---
1305 Pt anxious to get dressed and go home. IV dc'd. Clothing given. 1325 Ambulated to bathroom with stand-by assist - stable on feet. Voided qs
--- NOTE | 2019-05-27 13:46 | SUR.PHASEII ---
Unsure if RN who reviewed discharge instructions addressed the scopolamine patch. Left a voicemail on her phone with instructions including how long she may leave it on if desired, side effects, and to wash hands after removing it, including not to touch her eyes.
== END 2019-05-27 13:32 | disposition home or self-care (01) ==
PROVIDERS: PCP Physician Assistant Medical; Referring Provider Surgery; Visit Provider Surgery
PROC: (CPT 21933; principal; 2019-05-27 11:30)
DX: D17.1 Benign lipomatous neoplasm of skin and subcutaneous tissue of trunk (principal); R20.2 Paresthesia of skin; E66.01 Morbid (severe) obesity due to excess calories; Z68.42 Body mass index [BMI] 45.0-49.9, adult; E03.9 Hypothyroidism, unspecified; I10 Essential (primary) hypertension; F17.210 Nicotine dependence, cigarettes, uncomplicated
CPT/HCPCS: 21933; J0330; J0690; J1100; J2405; J2704

== ENCOUNTER → 2020-05-02 09:13 | Outpatient (CLI) | payer OTHER, SELFPAY ==
--- NOTE | 2020-05-02 09:15 | DI.RAD.S_ITS ---
PROCEDURE: XR LUMBAR SPINE MIN 4V INDICATIONS: LOW BACK PAIN TECHNIQUE: 5 views of the lumbar spine were acquired, including bilateral oblique views. COMPARISON: CT, L-SPINE WITHOUT CONTRAST, 09/06/2013, 9:43. [facility], CR, L-SPINE 2-3 VIEWS, 08/09/2013, 10:46. FINDINGS: Visualization of multiple levels is limited secondary to patient body habitus. Bones: Transitional anatomy is present. In keeping with prior numbering, vertebral bodies are labeled 1 through 5. There is grade 1 anterolisthesis of L4 on L5 as well as grade 1 retrolisthesis of L5 on S1. Severe disc and foraminal narrowing are noted at L4-5. There is suspected to be prominent disc and foraminal narrowing at L5-S1 although poorly visualized. Remaining levels demonstrate [id number] disc space narrowing with foraminal narrowing also of moderate degree at L1-L2 and L3-4. There is suspected to be small non bridging anterior osteophytes, poorly characterized. There is normal bony alignment. No vertebral body compression fractures. No suspicious bony lesions. Soft tissues: Overlying bowel gas pattern is normal. No suspicious soft tissue calcifications. IMPRESSION: 1. Limited exam secondary to patient body habitus. 2. Multilevel degenerative changes as described above. Dictated by: Felicia Thakkar M.D. on 05/02/2020 at 10:00 Approved by: Felicia Thakkar M.D. on 05/02/2020 at 10:29
== END ==
PROVIDERS: PCP Physician Assistant Medical; Referring Provider Physical Medicine & Rehabilitation; Visit Provider Physical Medicine & Rehabilitation
DX: M47.26 Other spondylosis with radiculopathy, lumbar region (principal); R19.00 Intra-abdominal and pelvic swelling, mass and lump, unspecified site
CPT/HCPCS: 72110

== ENCOUNTER → 2020-09-12 14:20 | Outpatient (CLI) | payer SELFPAY | PROVIDERS: PCP Physician Assistant Medical; Visit Provider Physician Assistant Medical | DX: N23 Unspecified renal colic (principal) | CPT/HCPCS: 87077; 87086; 87186 ==

== ENCOUNTER → 2020-11-22 09:35 | Outpatient (CLI) | payer OTHER, MEDICAID, SELFPAY | PROVIDERS: PCP Physician Assistant Medical; Referring Provider Physical Medicine & Rehabilitation; Visit Provider Physical Medicine & Rehabilitation | DX: M54.16 Radiculopathy, lumbar region (principal); Z53.20 Procedure and treatment not carried out because of patient's decision for unspecified reasons ==

== ENCOUNTER → 2020-11-30 11:44 | Outpatient (CLI) | payer OTHER, MEDICAID, SELFPAY | PROVIDERS: PCP Physician Assistant Medical; Referring Provider Physician Assistant Medical; Visit Provider Physician Assistant Medical | DX: N39.0 Urinary tract infection, site not specified (principal) | CPT/HCPCS: 81002; 87077; 87086 ==

== ENCOUNTER → 2020-12-10 09:40 | Outpatient (CLI) | payer OTHER, MEDICAID, SELFPAY | PROVIDERS: PCP Physician Assistant Medical; Visit Provider Family Medicine | DX: R30.0 Dysuria (principal) | CPT/HCPCS: 81002; 87086 ==

== ENCOUNTER → 2021-01-24 13:53 | Outpatient (CLI) | payer OTHER, MEDICAID, SELFPAY | PROVIDERS: PCP Physician Assistant Medical; Referring Provider Family Medicine; Visit Provider Family Medicine | DX: N39.0 Urinary tract infection, site not specified (principal) | CPT/HCPCS: 87086 ==

== ENCOUNTER → 2021-01-29 09:40 | Outpatient (CLI) | payer OTHER, MEDICAID, SELFPAY ==
--- NOTE | 2021-01-29 | DI.US.S_ITS ---
PROCEDURE: US RENAL COMPLETE INDICATIONS: CALCULUS OF URETER TECHNIQUE: Real-time scanning was performed of the kidneys and bladder, with image documentation. COMPARISON: [facility], CT, CT KUB, 01/30/2020, 12:44. [facility], US, US RENAL COMPLETE, 05/21/2019, 19:13. FINDINGS: Kidneys: Kidneys are normal in size. Right kidney measures 11.6 cm long; left kidney measures 12.0 cm long. Right renal cortical thickness is 1.1 cm; left renal cortical thickness is 1.2 cm. Renal cortical echotexture is normal. There is mild left hydronephrosis and multiple stones, largest measuring 9 mm. Mild right hydronephrosis present and multiple stones, largest measuring 2.6 cm. Bladder: Pre-void bladder volume is 369 mL. Post-void residual is 216 mL. Pre-void images demonstrate no intraluminal masses or stones. On pre-void images, bilateral ureteral jets are noted with color Doppler interrogation. (Of note, ureteral jets may not be detectable in up to 25% of cases due to insufficient differences in specific gravity between ureteral and bladder urine). Miscellaneous: No free pelvic fluid. IMPRESSION: 1. Multiple bilateral renal stones and mild bilateral hydronephrosis. Dictated by: Andrew Rivers RRA Interpreted: Rebecca Reid MD on 01/29/2021 at 11:11 Transcribed by: EDER on 01/29/2021 at 11:12 Approved by: Rebecca Reid MD, PhD on 01/29/2021 at 18:05
== END ==
PROVIDERS: PCP Physician Assistant Medical; Referring Provider Urology; Visit Provider Urology
DX: N13.2 Hydronephrosis with renal and ureteral calculous obstruction (principal)
CPT/HCPCS: 76770

== ENCOUNTER → 2021-03-20 09:50 | Outpatient (CLI) | payer OTHER, MEDICAID, SELFPAY ==
[2021-03-20 19:39] LABS: Alanine Aminotransferase 23 IU/L (<35); Albumin 3.6 g/dL (3.5-5.0); Albumin Globulin Ratio 1.2 (1.0-2.8); Alkaline Phosphatase 108 U/L (38-126); Aspartate Aminotransferase 30 IU/L (14-36); BUN Creatinine Ratio 44.9 (6-22); Bilirubin Total 0.5 mg/dL (0.2-1.3); Blood Urea Nitrogen 22 mg/dL (7-17); Calcium 10.9 mg/dL (8.4-10.2); Carbon Dioxide 29 mmol/L (22-32); Chloride 110 mmol/L (98-107); Cholesterol 170 mg/dL (140-199); Estimated Glomerular Filt Rate > 60.0 mL/min (>60); Globulin 2.9 g/dL (1.7-4.1); Glucose 93 mg/dL (70-100); HDL Cholesterol 32 mg/dL (40-60); HEMOLYSIS 40 (0-50); LDL Cholesterol Calculated 106 mg/dL (<100); Sodium 141 mmol/L (137-145); Total Protein 6.5 g/dL (6.3-8.2); Triglycerides 158 mg/dL (35-150)
[2021-03-20 19:57] LABS: Add Manual Diff / Slide Review NO; Basophils Absolute Auto 0 /uL (0-100); Basophils Percent Auto 0.5 % (0-2); Eosinophils Absolute Auto 300 /uL (0-450); Eosinophils Percent Auto 3.2 % (2-4); Hematocrit 46.8 % (36-46); Lymphocytes Absolute Auto 2000 /uL (1100-4500); Lymphocytes Percent Auto 20.7 % (25-40); Mean Corpuscular HGB Conc 34.2 % (30-36); Mean Corpuscular Hemoglobin 31.7 PG (26-34); Mean Corpuscular Volume 92.6 fL (80-100); Monocytes Absolute Auto 900 /uL (0-900); Monocytes Percent Auto 9.2 % (3-14); Neutrophils Absolute Auto 6500 /uL (1500-7000); Neutrophils Percent Auto 66.4 % (50-75); Platelet Count 229 X10^3/uL (150-400); Red Blood Cell Count 5.05 X10^6/uL (4.0-5.2); Red Cell Distribution Width 15.2 % (11.6-14.8); White Blood Cell Count 9.8 X10^3/uL (4.5-11.0)
[2021-03-20 20:06] LABS: TSH w/ Reflex to FT4 1.64 uIU/mL (0.47-4.68)
[2021-03-20 20:47] LABS: Microalbumi Creatinin Ratio Ur 375.5 ug/mg CR (<30); Microalbumin Urine Random 16.9 mg/dL (0-1.6)
[2021-03-22 07:38] LABS: Calcium 10.5 mg/dL (8.7-10.2); Parathyroid Hormone, Intact 62 pg/mL (15-65)
[2021-03-25 10:29] LABS: Ethyl Glucuronide Screen Negative ng/mL (Cutoff=500)
== END ==
PROVIDERS: PCP Physician Assistant Medical; Visit Provider Physician Assistant Medical
DX: Z79.891 Long term (current) use of opiate analgesic (principal); E03.9 Hypothyroidism, unspecified; E83.52 Hypercalcemia; E89.2 Postprocedural hypoparathyroidism; F43.10 Post-traumatic stress disorder, unspecified; I10 Essential (primary) hypertension; N12 Tubulo-interstitial nephritis, not specified as acute or chronic; N23 Unspecified renal colic; R19.00 Intra-abdominal and pelvic swelling, mass and lump, unspecified site; R79.89 Other specified abnormal findings of blood chemistry; Z87.442 Personal history of urinary calculi; N39.0 Urinary tract infection, site not specified; R20.2 Paresthesia of skin
CPT/HCPCS: 80053; 80061; 80305; 80321; 81002; 82043; 82306; 82310; 82570; 83970; 84443; 85025; 87086

== ENCOUNTER → 2021-04-11 08:54 | Outpatient (CLI) | payer OTHER, MEDICAID, SELFPAY ==
[2021-04-11 21:25] LABS: Bilirubin Urine UA NEGATIVE (NEGATIVE); Color Urine UA YELLOW; Glucose Urine UA NEGATIVE (Negative); Ketones Urine UA 1+ (NEGATIVE); Leukocyte Esterase Urine UA 3+ (NEGATIVE); Nitrite Urine UA NEGATIVE (Negative); Occult Blood Urine UA 3+ (Negative); Protein Urine UA 2+ (Negative); Specific Gravity Urine UA 1.015 (1.000-1.035); Urobilinogen Urine UA 0.2 E.U./dL (0.2)
[2021-04-11 21:30] LABS: Appearance Urine UA Cloudy
[2021-04-11 22:04] LABS: Bacteria Urine Many (>30); RBC Urine 30-100/HPF (0-5/HPF); WBC Urine >100/HPF (0-5/HPF)
== END ==
PROVIDERS: PCP Physician Assistant Medical; Referring Provider Physician Assistant Medical; Visit Provider Physician Assistant Medical
DX: N30.01 Acute cystitis with hematuria (principal)
CPT/HCPCS: 81001; 81002; 87077; 87086

== ENCOUNTER → 2021-04-25 10:34 | Outpatient (CLI) | payer OTHER, MEDICAID, SELFPAY ==
[2021-04-25 11:32] LABS: Alanine Aminotransferase 18 IU/L (<35); Albumin 3.9 g/dL (3.5-5.0); Albumin Globulin Ratio 1.3 (1.0-2.8); Alkaline Phosphatase 105 U/L (38-126); Aspartate Aminotransferase 25 IU/L (14-36); BUN Creatinine Ratio 47.2 (6-22); Bilirubin Total 0.3 mg/dL (0.2-1.3); Blood Urea Nitrogen 25 mg/dL (7-17); Calcium 10.9 mg/dL (8.4-10.2); Carbon Dioxide 30 mmol/L (22-32); Chloride 111 mmol/L (98-107); Estimated Glomerular Filt Rate > 60.0 mL/min (>60); Glucose 119 mg/dL (70-100); HEMOLYSIS < 15 (0-50); Potassium 3.5 mmol/L (3.4-5.1); Sodium 144 mmol/L (137-145); Total Protein 6.9 g/dL (6.3-8.2)
--- NOTE | 2021-04-25 11:43 | DI.CT.S_ITS ---
PROCEDURE: CT ABDOMEN PELVIS WO/W CON INDICATIONS: NEPHROLITHLASIS/RENAL CELL CANCER, RIGHT SIDE TECHNIQUE: Optional 5 mm thick noncontrast images acquired from the diaphragm to the symphysis pubis. After the administration of intravenous contrast, 5 mm thick images acquired from the diaphragm to the symphysis pubis after a 10-minute delay. 2 mm thick coronal and sagittal reformats were then performed of the kidneys and ureters. For radiation dose reduction, the following was used: automated exposure control, adjustment of mA and/or kV according to patient size. COMPARISON: [facility], CT, CT KUB, 01/30/2020, 12:44. [facility], US, US RENAL COMPLETE, 01/29/2021, 10:24. [facility], CR, XR ABDOMEN 1 VIEW, 01/30/2021, 10:36. FINDINGS: Image quality: Excellent. Lung bases: There is mild dependent atelectasis bilaterally. Heart size is at the upper limits of normal. Urinary system: Multiple small nonobstructing stones redemonstrated within the right kidney including clustered stones measuring up to 0.8 cm in aggregate dimension in the inferior pole. This demonstrates attenuation values of approximately 500-600 Hounsfield units. There is no right hydronephrosis. On the left, multiple confluent coarse stones are demonstrated in the renal collecting system suggestive of staghorn calculi. The confluent stones in the inferior pole measure up to approximately 2.9 cm in dimension. These demonstrate attenuation values of approximately 900-1000 Hounsfield units. There is minimal pelviectasis extending to the ureteropelvic junction without a discrete obstructing stone visualized. Bilateral foci of of renal cortical calcifications are redemonstrated which are likely dystrophic. These include a few clustered stones within the inferior pole of the right kidney with associated renal cortical thinning suggesting sequelae of prior partial nephrectomy. Within the inferior pole of the left kidney, there is a small exophytic nodule measuring up to approximately 1.0 cm on series 7, image 112 which appears minimally increased from 0.8 cm on the prior study. Other solid organs: The liver demonstrates no discrete mass. There is intra and extrahepatic biliary ductal dilatation with pneumobilia redemonstrated. Findings are similar to the prior study. The gallbladder is surgically absent. Multiple calcifications are redemonstrated within the pancreatic head and uncinate process consistent with sequelae of chronic pancreatitis. Spleen is normal in size and enhancement. There is a small left adrenal nodule measuring up to 1.7 cm which appears stable in size. This demonstrates attenuation values compatible with a lipid rich adenoma. The Peritoneum and bowel: Bowel loops demonstrate normal wall thickness and caliber. No free fluid or air. Nodes and vessels: No retroperitoneal or mesenteric adenopathy by size criteria. Aorta and inferior vena cava are normal in size. Abdominal wall: No ventral hernias. Pelvis: No pathologic free pelvic fluid. No inguinal hernias or adenopathy. Bones: No suspicious bony lesions. No vertebral body compression fractures. There is grade 1 anterolisthesis redemonstrated at L3-L4 and L4-5. There is severe degenerative disc disease with partial fusion at L4-5. Moderate to severe facet arthropathy also demonstrated in the lower lumbar spine. IMPRESSION: 1. Extensive bilateral nephrolithiasis including casting calcifications within the left renal collecting system compatible with staghorn calculi. Minimal left pelviectasis demonstrated without a discrete obstructing stone. No hydronephrosis on the right. 2. Bilateral renal cortical calcifications which are likely dystrophic. These include clustered calcifications in the inferior pole with associated cortical thinning suggesting sequelae of prior partial nephrectomy. 3. Small exophytic nodule extending inferiorly from the left kidney is too small to characterize but appears slightly increased in size from the prior study. The differential includes a hyperdense cyst versus a small renal mass. 4. Biliary ductal dilatation with extensive pneumobilia redemonstrated consistent with sequelae of prior intervention. 5. Multiple pancreatic calcifications consistent with sequelae of chronic pancreatitis redemonstrated. Dictated by: Rene Russo M.D. on 04/25/2021 at 16:53 Approved by: Rene Russo M.D. on 04/29/2021 at 9:48
[2021-04-25 12:09] LABS: Appearance Urine UA SL CLOUDY; Bilirubin Urine UA NEGATIVE (NEGATIVE); Color Urine UA YELLOW; Glucose Urine UA TRACE g/dL (Negative); Ketones Urine UA NEGATIVE (NEGATIVE); Leukocyte Esterase Urine UA 2+ (NEGATIVE); Nitrite Urine UA POSITIVE (Negative); Occult Blood Urine UA 3+ (Negative); Protein Urine UA 1+ (Negative); Specific Gravity Urine UA 1.015 (1.000-1.035); Urobilinogen Urine UA 0.2 E.U./dL (0.2)
[2021-04-25 12:25] LABS: Bacteria Urine Few (2-10); Culture Indicated Urine Specimen Cultured; RBC Urine 30-100/HPF (0-5/HPF); Squamous Epithelial Cell Urine 1-5 /HPF (0-5/HPF); Transitional Epi Cells Urine 0-1/HPF (0-5/HPF); WBC Urine 30-100/HPF (0-5/HPF)
[2021-04-25 12:27] LABS: UR Morphine/Opiate cutoff 300 Positive (Negative); Ur Creatinine Normal (Normal); Ur Specific Gravity Normal (Normal); Urine Amphetamines Negative (Negative); Urine Barbiturates Negative (Negative); Urine Benzodiazepines Negative (Negative); Urine Cocaine Negative (Negative); Urine MDMA Negative (Negative); Urine Methadone Negative (Negative); Urine Methamphetamines Negative (Negative); Urine Oxycodone Positive (Negative); Urine Phencyclidine Negative (Negative); Urine Tetrahydrocannabinol Positive (Negative); Urine Tricyclic Antidepressant Negative (Negative); Urine pH Normal (Normal)
== END ==
PROVIDERS: PCP Physician Assistant Medical; Referring Provider Urology; Visit Provider Urology
DX: C64.1 Malignant neoplasm of right kidney, except renal pelvis (principal); N20.0 Calculus of kidney; N30.01 Acute cystitis with hematuria; N23 Unspecified renal colic; N28.9 Disorder of kidney and ureter, unspecified; Z79.891 Long term (current) use of opiate analgesic
CPT/HCPCS: 36415; 74178; 80053; 80305; 81001; 87077; 87086; 87185; 87186; Q9967

== ENCOUNTER → 2021-05-16 11:48 | Outpatient (CLI) | payer OTHER, MEDICAID, SELFPAY | PROVIDERS: PCP Physician Assistant Medical; Visit Provider Physician Assistant Medical | DX: N23 Unspecified renal colic (principal); N30.01 Acute cystitis with hematuria | CPT/HCPCS: 81002; 87086 ==

== ENCOUNTER → 2021-06-03 11:19 | Outpatient (CLI) | payer OTHER, MEDICAID, SELFPAY | PROVIDERS: PCP Physician Assistant Medical; Visit Provider Physician Assistant Medical | DX: N39.0 Urinary tract infection, site not specified (principal) | CPT/HCPCS: 81002; 87077; 87086 ==

== ENCOUNTER → 2021-07-11 11:47 | Outpatient (CLI) | payer OTHER, MEDICAID, SELFPAY | PROVIDERS: PCP Physician Assistant Medical; Visit Provider Physician Assistant Medical | DX: N23 Unspecified renal colic (principal) | CPT/HCPCS: 80305; 81002; 87086 ==

== ENCOUNTER → 2021-08-09 11:58 | Outpatient (CLI) | payer OTHER, MEDICAID, SELFPAY ==
--- NOTE | 2021-08-09 12:00 | DI.US.S_ITS ---
PROCEDURE: US EXTREMELY NONVASC UPPER RT INDICATIONS: peanut sized masses either side mid clavicle TECHNIQUE: Real-time scanning was performed of the right shoulder, with image documentation. COMPARISON: None. FINDINGS: Focused ultrasound examination of right shoulder at patient's reported area of palpable lump shows a 2.2 x 0.4 x 2.3 cm oval structure in subcutaneous soft tissue and is isoechoic to adjacent subcutaneous fat. No internal vascularity is seen. IMPRESSION: Finding most likely represent a lipoma in right shoulder soft tissue. Clinical follow-up is recommended. Dictated by: Giuseppe Hammer M.D. on 08/09/2021 at 14:44 Approved by: Giuseppe Hammer M.D. on 08/09/2021 at 14:45
== END ==
PROVIDERS: PCP Physician Assistant Medical; Referring Provider Physician Assistant Medical; Visit Provider Physician Assistant Medical
DX: R22.30 Localized swelling, mass and lump, unspecified upper limb (principal)
CPT/HCPCS: 76882

== ENCOUNTER → 2021-08-28 15:56 | Outpatient (CLI) | payer OTHER, MEDICAID, SELFPAY | PROVIDERS: PCP Physician Assistant Medical; Visit Provider Urology | DX: N39.0 Urinary tract infection, site not specified (principal) | CPT/HCPCS: 87086 ==

== ENCOUNTER → 2021-09-26 08:18 | Outpatient (CLI) | payer OTHER, MEDICAID, SELFPAY ==
[2021-09-26 18:53] LABS: Add Manual Diff / Slide Review NO; Basophils Absolute Auto 100 /uL (0-100); Basophils Percent Auto 1.2 % (0-2); Eosinophils Absolute Auto 600 /uL (0-450); Hematocrit 49.7 % (36-46); Hemoglobin 16.9 g/dL (12.0-16.0); Lymphocytes Absolute Auto 2300 /uL (1100-4500); Lymphocytes Percent Auto 24.4 % (25-40); Mean Corpuscular HGB Conc 34.1 % (30-36); Mean Corpuscular Hemoglobin 32.6 PG (26-34); Mean Corpuscular Volume 95.5 fL (80-100); Monocytes Absolute Auto 900 /uL (0-900); Monocytes Percent Auto 9.3 % (3-14); Neutrophils Absolute Auto 5700 /uL (1500-7000); Neutrophils Percent Auto 59.1 % (50-75); Platelet Count 223 X10^3/uL (150-400); Red Cell Distribution Width 13.7 % (11.6-14.8); White Blood Cell Count 9.6 X10^3/uL (4.5-11.0)
[2021-09-26 18:58] LABS: Alanine Aminotransferase 34 IU/L (<35); Albumin Globulin Ratio 1.5 (1.0-2.8); Alkaline Phosphatase 101 U/L (38-126); Aspartate Aminotransferase 33 IU/L (14-36); BUN Creatinine Ratio 42.9 (6-22); Bilirubin Total 0.5 mg/dL (0.2-1.3); Blood Urea Nitrogen 24 mg/dL (7-17); Calcium 10.6 mg/dL (8.4-10.2); Carbon Dioxide 25 mmol/L (22-32); Chloride 106 mmol/L (98-107); Cholesterol 141 mg/dL (140-199); Estimated Glomerular Filt Rate > 60 mL/min (>60); Globulin 2.6 g/dL (1.7-4.1); Glucose 109 mg/dL (70-100); HDL Cholesterol 46 mg/dL (40-60); HEMOLYSIS 41 (0-50); LDL Cholesterol Calculated 80 mg/dL (<100); Potassium 4.5 mmol/L (3.4-5.1); Sodium 140 mmol/L (137-145); Total Protein 6.6 g/dL (6.3-8.2); Triglycerides 77 mg/dL (35-150)
[2021-09-26 19:08] LABS: Hemoglobin A1C% w Est Avg Glu 5.7 % (4.0-6.0)
[2021-09-26 19:27] LABS: TSH w/ Reflex to FT4 1.11 uIU/mL (0.47-4.68)
== END ==
PROVIDERS: PCP Physician Assistant Medical; Visit Provider Physician Assistant Medical
DX: E03.9 Hypothyroidism, unspecified (principal); E66.01 Morbid (severe) obesity due to excess calories; E83.52 Hypercalcemia; E89.2 Postprocedural hypoparathyroidism; I10 Essential (primary) hypertension; N28.9 Disorder of kidney and ureter, unspecified; R20.2 Paresthesia of skin; Z68.42 Body mass index [BMI] 45.0-49.9, adult; R73.9 Hyperglycemia, unspecified
CPT/HCPCS: 80053; 80061; 83036; 84443; 85025

== ENCOUNTER 2021-10-30 14:48 | Emergency (ER) | payer OTHER, MEDICAID, SELFPAY ==
[2021-10-30] VITALS (8 sets, daily range): BP systolic 152–162; BP diastolic 71–74; PULSE 66–94; RESP 12–22; TEMP 36.1; O2SAT 91–95; BMI 44.4
--- NOTE | 2021-10-30 15:08 | DI.RAD.S_ITS ---
PROCEDURE: XR CHEST 1V INDICATIONS: chest pain TECHNIQUE: One view of the chest was acquired. COMPARISON: [facility], , CHEST 2 VIEW, 01/26/2017, 10:06. FINDINGS: Surgical changes and devices: None. Lungs and pleura: Lungs are clear. No pleural effusions or pneumothorax. Low lung volumes accentuate pulmonary interstitium and heart size. Mediastinum: Mediastinal contours appear normal. Heart size is normal. Bones and chest wall: No suspicious bony lesions. Overlying soft tissues appear unremarkable. IMPRESSION: 1. No acute cardiopulmonary findings Approved by: Henrry Arredondo M.D. on 10/30/2021 at 14:57
[2021-10-30 15:20] LABS: Add Manual Diff / Slide Review NO; Basophils Absolute Auto 100 /uL (0-100); Basophils Percent Auto 1.2 % (0-2); Eosinophils Absolute Auto 300 /uL (0-450); Eosinophils Percent Auto 3.4 % (2-4); Hematocrit 46.7 % (36-46); Lymphocytes Absolute Auto 3200 /uL (1100-4500); Lymphocytes Percent Auto 31.1 % (25-40); Mean Corpuscular HGB Conc 34.2 % (30-36); Mean Corpuscular Hemoglobin 32.3 PG (26-34); Mean Corpuscular Volume 94.6 fL (80-100); Monocytes Absolute Auto 900 /uL (0-900); Monocytes Percent Auto 8.8 % (3-14); Neutrophils Absolute Auto 5600 /uL (1500-7000); Neutrophils Percent Auto 55.5 % (50-75); Platelet Count 227 X10^3/uL (150-400); Red Blood Cell Count 4.94 X10^6/uL (4.0-5.2); Red Cell Distribution Width 13.6 % (11.6-14.8); White Blood Cell Count 10.1 X10^3/uL (4.5-11.0)
[2021-10-30 15:36] LABS: Alanine Aminotransferase 32 IU/L (<35); Albumin 3.9 g/dL (3.5-5.0); Albumin Globulin Ratio 1.3 (1.0-2.8); Alkaline Phosphatase 113 U/L (38-126); Aspartate Aminotransferase 34 IU/L (14-36); BUN Creatinine Ratio 36.7 (6-22); Bilirubin Total 0.4 mg/dL (0.2-1.3); Blood Urea Nitrogen 22 mg/dL (7-17); Calcium 10.6 mg/dL (8.4-10.2); Carbon Dioxide 28 mmol/L (22-32); Chloride 109 mmol/L (98-107); Creatine Kinase 61 U/L (30-135); Estimated Glomerular Filt Rate > 60 mL/min (>60); Globulin 2.9 g/dL (1.7-4.1); Glucose 99 mg/dL (70-100); HEMOLYSIS 33 (0-50); Lipase 588 U/L (23-300); Potassium 4.1 mmol/L (3.4-5.1); Sodium 143 mmol/L (137-145); Total Protein 6.8 g/dL (6.3-8.2)
--- NOTE | 2021-10-30 15:41 | PC.NURSE ---
pt destating to 88% on room air. place on 2L via NC
[2021-10-30 15:47] LABS: Troponin I < 0.012 ng/mL (0.01-0.034)
--- NOTE | 2021-10-30 18:15 | ED_ITS ---
HPI - Chest Pain General Chief Complaint: Chest Pain Stated Complaint: possible cardiac event Time Seen by Provider: 10/30/21 15:11 Mode of arrival: Ambulatory History of Present Illness HPI narrative: Patient is a 56-year-old female history of hyperlipidemia hypertension obesity varicose veins presenting today with chest discomfort. She says she was sitting this morning with her cat on her chest with family she had a burning sensation in the center of her chest. It lasted for about 10 minutes. She talked to a nurse caught herself ready and developed heaviness in her chest. She has no shortness breath this all started around 8:00 a.m. this morning. She now has complete resolution of symptoms. EMS was called the patient declined transport by EMS. She now overall is feeling significantly better. She actually has been sleeping in the ED. she is also a smoker Related Data Home Medications Medication Instructions Recorded Confirmed aspirin 81 mg tablet,delayed 81 mg PO DAILY 08/08/21 10/02/21 release atorvastatin 40 mg tablet 40 mg PO DAILY 08/08/21 10/02/21 Previous Rx's Medication Instructions Recorded albuterol sulfate 90 mcg/actuation 2 puff inhalation Q4-6H PRN 01/22/21 aerosol inhaler Wheezing #18 grams baclofen 20 mg tablet 20 mg PO BID #90 tabs 06/19/21 duloxetine 20 mg capsule,delayed See Rx Instructions .Route 06/19/21 release .COMPLEX #90 caps losartan 25 mg tablet 25 mg PO DAILY #90 tabs 06/19/21 valacyclovir 500 mg tablet 500 mg PO BID #60 tabs 06/19/21 ciprofloxacin HCl 250 mg tablet 250 mg PO BID #14 tabs 07/11/21 morphine 15 mg tablet,extended See Rx Instructions .Route 09/25/21 release .COMPLEX #56 tabs naloxone 4 mg/actuation nasal spray 4 mg intranasal Q2M PRN opioid 09/25/21 overdose #2 ea oxycodone-acetaminophen 10 mg-325 2 tab PO DAILY #56 tabs 09/25/21 mg tablet (Percocet) oxybutynin chloride 15 mg See Rx Instructions .Route 10/02/21 tablet,extended release 24 hr .COMPLEX #90 tabs liraglutide (weight loss) 3 mg/0.5 0.6 mg (0.1 mL) SUBCUT DAILY #15 mL 10/03/21 mL (18 mg/3 mL) subcut pen injector gabapentin 800 mg tablet See Rx Instructions .Route 10/08/21 .COMPLEX #90 tabs levothyroxine 50 mcg tablet See Rx Instructions .Route 10/08/21 .COMPLEX #30 tabs liraglutide 0.6 mg/0.1 mL (18 mg/3 See Rx Instructions SUBCUT 10/11/21 mL) subcutaneous pen injector .COMPLEX #9 mL (Victoza 3-Wes) varenicline 1 mg tablet (Chantix) 1 mg PO BID #56 tabs 10/21/21 Allergies Allergy/AdvReac Type Severity Reaction Status Date / Time lisinopril Allergy Mild cough Verified 10/30/21 15:07 codeine [CODEINE] AdvReac Mild nausea/vomi Verified 10/30/21 15:07 ting TROSPIUM CHLORIDE Allergy MEMORY LOSS Uncoded 10/30/21 15:07 Review of Systems Review of Systems Narrative: GENERAL: Denies chills, fatigue, malaise, fever, sweats, travel HEENT: Denies sinus pain, ear pain, sore throat, difficulty swallowing, neck pa in RESPIRATORY: Denies dyspnea, cough, wheezing, hemoptysis, sputum. CARDIOVASCULAR: See HPI GASTROINTESTINAL: Denies nausea, vomiting, abdominal pain, diarrhea, constipation, melena. : Denies dysuria, frequency, incontinence, hematuria, urinary retention, flank pain. MUSCULOSKELETAL: Denies weakness, joint pain, or bony pain SKIN: No rash, no erythema, no pruritus NEUROLOGIC: Denies weakness, dizziness, headache, numbness, change in speech, confusion PSYCHIATRIC: No concerning psychosocial issues. 12 point review of systems is negative except for those stated above and HPI Patient History Medical History Ankle pain Chronic back pain Chronic pain Chronic sciatica of right side Herpes History of nephrolithiasis History of urinary incontinence Hx of malignant neoplasm of kidney Hyperparathyroidism Irritable bowel syndrome Kidney disease Left eye pain Lumbar radiculopathy Renal cancer Restless leg syndrome Right hip pain Sciatica Spondylolisthesis at L4-L5 level Spondylolisthesis at L5-S1 level Tobacco use disorder Urinary tract infection Surgical History History of parathyroid surgery History of right oophorectomy Family History Mother Hypertension Heart disease Cancer Social History (System 07/29/21 @ 12:53 by Lady Tami Martin) occupational status: employed Smoking Status: Current every day smoker alcohol intake: current substance use type: marijuana Smoking Status: Current every day smoker tobacco type: cigars alcohol intake frequency: holidays/special occasions only Substance Use Type: marijuana, opiates and prescription drug Exam Initial Vital Signs Initial Vital Signs: Vital Signs Temperature 97 F L 10/30/21 14:55 Pulse Rate 94 H 10/30/21 14:55 Respiratory Rate 22 10/30/21 14:55 Blood Pressure 152/71 H 10/30/21 14:55 Pulse Oximetry 94 10/30/21 14:55 Oxygen Delivery Method 10/30/21 14:55 GENERAL: Sleeping arousable 56-year-old female BMI 44 and in no acute distress. HEENT: Head atraumatic,EOMI, pupils reactive, face symmetric, moist mucous membranes CARDIOVASCULAR: Regular rate and rhythm without murmurs, rubs or gallops. RESPIRATORY: Breath sounds equal bilaterally, no wheezes rales or rhonchi. ABDOMEN: Soft, very minimal epigastric pain no guarding no rebound no read quadrant pain EXTREMITIES: Normal range of motion, no clubbing or edema. Neurovascularly intact NEUROLOGICAL: Alert and oriented x4. SKIN: Warm, dry, no laceration, no petechiae, no rashes or lesions. Scores HEART Score Heart Score history: Moderately Suspicious Heart Score EKG: Normal Heart Score Age: 45-64 years old Heart Score risk factors: > 3 risk factors or hx of atherosclerotic disease Heart Score troponin: < or = to normal limit Heart Score Total: 4 Course Orders Ordered: ED Orders 10/30/21 15:05 Complete Blood Count AUTO DIFF Stat Comprehensive Metabolic Panel Stat Lipase Stat Magnesium Stat Troponin & CK Cardiac Panel Stat 10/30/21 15:08 XR chest 1V Stat 10/30/21 15:11 EKG-12 Lead Stat 10/30/21 18:30 Trop I [Troponin I] Stat 10/30/21 18:33 EKG-12 Lead Stat Vital Signs Vital signs: Vital Signs - 8 hr 10/30/21 14:55 10/30/21 15:37 10/30/21 16:00 Temperature 97 F L Pulse Rate 94 H 80 71 Respiratory Rate 22 16 12 Blood Pressure 152/71 H Pulse Oximetry 94 91 93 Oxygen Delivery Method Room Air 10/30/21 16:01 10/30/21 16:01 10/30/21 16:30 Temperature Pulse Rate 71 70 Respiratory Rate 13 14 Blood Pressure 160/71 H Pulse Oximetry 93 Oxygen Delivery Method 10/30/21 16:31 10/30/21 16:31 10/30/21 17:00 Temperature Pulse Rate 67 66 Respiratory Rate 13 13 Blood Pressure 157/72 H Pulse Oximetry 94 Oxygen Delivery Method 10/30/21 17:01 10/30/21 17:01 Temperature Pulse Rate 67 Respiratory Rate 15 Blood Pressure 162/74 H Pulse Oximetry 95 Oxygen Delivery Method MDM - Chest Pain Lab Data Result diagrams: 10/30/21 15:05 10/30/21 15:05 Labs: Lab Results 10/30/21 10/30/21 10/30/21 Range/Units 15:05 15:05 18:30 WBC 10.1 (4.5-11.0) X10^3/uL RBC 4.94 (4.0-5.2) X10^6/uL Hgb 16.0 (12.0-16.0) g/dL Hct 46.7 H (36-46) % MCV 94.6 (80-100) fL MCH 32.3 (26-34) PG MCHC 34.2 (30-36) % RDW 13.6 (11.6-14.8) % Plt Count 227 (150-400) X10^3/uL Neut % (Auto) 55.5 (50-75) % Lymph % (Auto) 31.1 (25-40) % Titus % (Auto) 8.8 (3-14) % Eos % (Auto) 3.4 (2-4) % Baso % (Auto) 1.2 (0-2) % Neut # (Auto) 5600 (3880-5758) /uL Lymph # (Auto) 3200 (2374-6644) /uL Titus # (Auto) 900 (0-900) /uL Eos # (Auto) 300 (0-450) /uL Baso # (Auto) 100 (0-100) /uL Sodium 143 (137-145) mmol/L Potassium 4.1 (3.4-5.1) mmol/L Chloride 109 H (98-107) mmol/L Carbon Dioxide 28 (22-32) mmol/L BUN 22 H (7-17) mg/dL Creatinine 0.60 (0.52-1.04) mg/dL Estimated GFR > 60 (>60) mL/min BUN/Creatinine Ratio 36.7 H (6-22) Glucose 99 (70-100) mg/dL Calcium 10.6 H (8.4-10.2) mg/dL Magnesium 2.0 (1.6-2.3) mg/dL Total Bilirubin 0.4 (0.2-1.3) mg/dL AST 34 (14-36) IU/L ALT 32 (<35) IU/L Alkaline Phosphatase 113 (38-126) U/L Total Creatine Kinase 61 (30-135) U/L CK-MB (CK-2) TNP CK-MB (CK-2) Rel Index TNP Troponin I < 0.012 0.017 (0.01-0.034) ng/mL Total Protein 6.8 (6.3-8.2) g/dL Albumin 3.9 (3.5-5.0) g/dL Globulin 2.9 (1.7-4.1) g/dL Albumin/Globulin Ratio 1.3 (1.0-2.8) Lipase 588 H (23-300) U/L Imaging Data Chest x-ray: Radiologist's Impression: Petey Harris MR#: [id number] : 1965 Acct:[id number] Age/Sex: 56 / F Date of Service: 10/30/21 Loc: ED Accession Number: [id number] ?? Procedure: XR chest 1V Ordering Provider: Gabriella Franco D.O. PROCEDURE:? XR CHEST 1V ? INDICATIONS:? chest pain ? TECHNIQUE:? One view of the chest was acquired.? ? [facility], 10[facility]06. ? FINDINGS:? ? Surgical changes and devices:? None.? ? Lungs and pleura:? Lungs are clear.? No pleural effusions or pneumothorax.? Low lung volumes accentuate pulmonary interstitium and heart size. ? Mediastinum:? Mediastinal contours appear normal.? Heart size is normal.? ? Bones and chest wall:? No suspicious bony lesions.? Overlying soft tissues appear unremarkable.? ? IMPRESSION:? ? 1. No acute cardiopulmonary findings ? ? ? Approved by: Henrry Arredondo M.D. on 10/30/2021 at 14:57? ECG Data Interpretation: EKG 1. Sinus rhythm rate 86 KS interval 162 QRS 106 QTC 430 PVC noted some artifact no obvious ST changes similar to previous in 20 EKG 2. Normal sinus rhythm rate 69 KS interval 188 QRS [address] changes MDM Narrative Medical decision making narrative: Patient in ED for multiple hours sleeping chest pain-free. Waiting for repeat troponin, patient does have significant risk factors. The patient decides to leave against advice before repeat troponin. We have gone over risk factors. We also gone over that she certainly needs more cardiac testing. The patient is clinically sober, free from distracting injury, appears to have intact insight, judgment and reason. Does not meet criteria for involuntary hospitalization. Patient has the capacity to make decisions. The patient is also not under any duress to leave the hospital. In this scenario, it would be battery to subject the patient to treatment against his/her will. I have voiced my concerns for the patient's health given that a full evaluation and treatment had not occurred. I have discussed the need for continued evaluation to determine if there symptoms are caused by a condition that present risk of or morbidity. Risk including but not limited to , permanent disability, prolonged hospitalization, prolonged illness, were discussed. I tried offering alternative options in hopes that the patient might be amenable to partial evaluation and treatment which would be medically beneficial to the patient, though the patient declined my options and insisted on leaving. Because I have been unable to convince the patient to stay I answered all of their questions about the condition and ask them to return to the ED as soon as possible to complete their evaluation, especially if their symptoms worsen or do not improve. I emphasized that leaving against medical advice did not preclude returning here for further evaluation. I asked the patient to return if they change their mind about the further evaluation and treatment. I strongly encouraged the patient to return to this emergency department or any emergency department at any time, particularly with worsening symptoms Repeat troponin does return still in the negative range slightly elevated 0.012- 0.017 unlikely to be a significant increase. Discharge Plan Departure Patient Disposition: Left Against Medical Advice Clinical Impression: Atypical chest pain Instructions: DI for Atypical Chest Pain Activity Restrictions/Additional Instructions: YOU ARE LEAVING AGAINST MEDICAL ADVICE. IT WAS RECOMMENDED THAT YOU STAY AND WAIT FOR HER 2ND BLOOD TEST BEFORE LEAVING. *You have been diagnosed with atypical chest pain *What to do: At this time I do recommend that he have outpatient stress test. Her symptoms are mildly concerning. Certainly if you have recurrent chest discomfort I encouraged 2 to go to the nearest hospital as soon as possible that you do need echocardiogram and stress test *Continue to take medications as directed *Follow up with your primary care provider in 2-3 days or call [phone] *Return to ER if you should have increasing chest pain shortness of breath or any new, worsening or concerning symptoms Prescriptions: No Action albuterol sulfate 90 mcg/actuation HFA aerosol inhaler 2 puff INHALATION Q4-6H PRN (Reason: Wheezing) Qty: 18 2RF oxybutynin chloride 15 mg tablet extended release 24hr See Rx Instructions .ROUTE .COMPLEX Qty: 90 0RF Dose Instruction: TAKE ONE TABLET BY MOUTH EVERY DAY Rx Instructions: TAKE ONE TABLET BY MOUTH EVERY DAY gabapentin 800 mg tablet See Rx Instructions .ROUTE .COMPLEX Qty: 90 3RF Dose Instruction: TAKE 1 AND (1/2) TABLETS BY MOUTH THREE TIMES A DAY Rx Instructions: TAKE 1 AND (1/2) TABLETS BY MOUTH THREE TIMES A DAY levothyroxine 50 mcg tablet See Rx Instructions .ROUTE .COMPLEX Qty: 30 0RF Dose Instruction: TAKE ONE TABLET BY MOUTH EVERY DAY Rx Instructions: TAKE ONE TABLET BY MOUTH EVERY DAY Victoza 3-Wes 0.6 mg/0.1 mL (18 mg/3 mL) pen injector See Rx Instructions SUBCUT .COMPLEX Qty: 9 0RF Rx Instructions: inject 0.6mg subcutaneously once daily x 7 days; then 1.2mg daily, not to exceed 1.8mg/day SUBCUT varenicline [Chantix] 1 mg tablet 1 mg PO BID Qty: 56 1RF ciprofloxacin HCl 250 mg tablet 250 mg PO BID Qty: 14 0RF oxycodone-acetaminophen [Percocet] 10-325 mg tablet 2 tab PO DAILY Qty: 56 0RF morphine 15 mg tablet extended release See Rx Instructions .ROUTE .COMPLEX Qty: 56 0RF Dose Instruction: TAKE ONE TABLET BY MOUTH EVERY 12 HOURS Rx Instructions: TAKE ONE TABLET BY MOUTH EVERY 12 HOURS naloxone 4 mg/actuation spray,non-aerosol 4 mg intranasal Q2M PRN (Reason: opioid overdose) Qty: 2 0RF Rx Instructions: spray 1 dose into ONE nostril; alternate nostrils w each dose until help arrives duloxetine 20 mg capsule,delayed release(DR/EC) See Rx Instructions .ROUTE .COMPLEX Qty: 90 2RF Dose Instruction: TAKE ONE CAPSULE BY MOUTH THREE TIMES A DAY Rx Instructions: TAKE ONE CAPSULE BY MOUTH THREE TIMES A DAY baclofen 20 mg tablet 20 mg PO BID Qty: 90 3RF losartan 25 mg tablet 25 mg PO DAILY Qty: 90 3RF valacyclovir 500 mg tablet 500 mg PO BID Qty: 60 3RF atorvastatin 40 mg tablet 40 mg PO DAILY aspirin 81 mg tablet,delayed release (DR/EC) 81 mg PO DAILY liraglutide (weight loss) 3 mg/0.5 mL (18 mg/3 mL) pen injector 0.6 mg SUBCUT DAILY Qty: 15 0RF Referrals: Kirstie Winn PA-C [Primary Care Provider] - Stand Alone Forms: Against Medical Advice
[2021-10-30 19:12] LABS: Troponin I 0.017 ng/mL (0.01-0.034)
== END 2021-10-30 19:00 | disposition left against medical advice (07) ==
PROVIDERS: Emergency Provider Emergency Medicine; PCP Physician Assistant Medical; Referring Provider Physician Assistant Medical
DX: R07.89 Other chest pain (principal)
CPT/HCPCS: 36415; 71045; 80053; 82550; 83690; 83735; 84484; 85025; 93005; 93010; 99283; 99284

== ENCOUNTER → 2021-11-06 13:01 | Outpatient (CLI) | payer OTHER, MEDICAID, SELFPAY ==
[2021-11-11 17:00] LABS: Albumin 3.5 g/dL (2.9-4.4); Alpha 1 Globulin 0.3 g/dL (0.0-0.4); Alpha 2 Globulin 0.7 g/dL (0.4-1.0); Gamma Globulin 0.8 g/dL (0.4-1.8); Protein, Total 6.3 g/dL (6.0-8.5)
== END ==
PROVIDERS: PCP Physician Assistant Medical; Visit Provider Family Medicine
DX: E83.52 Hypercalcemia (principal)
CPT/HCPCS: 80305; 84155; 84165

== ENCOUNTER → 2022-02-12 11:35 | Outpatient (CLI) | payer OTHER, SELFPAY ==
--- NOTE | 2022-02-12 11:45 | DI.RAD.S_ITS ---
PROCEDURE: XR LUMBAR SPINE 2-3V INDICATIONS: low back pain and bilateral hip pain TECHNIQUE: 3 views of the lumbar spine were acquired. [facility], LEXIE, XR LUMBAR SPINE MIN 4V, 05/02/2020, 9:16. FINDINGS: Bones: Lumbar Spine transitional anatomy redemonstrated, in keeping with prior numbering, vertebral bodies are labeled 1 through 5. There is grade 1 spondylolisthesis of the L4 vertebral body on L5 as well as grade 1 retrolisthesis at the L5-S1 level. Severe disc and foraminal narrowing again noted at the L4-L5 level. There is suspected prominent disc and foraminal narrowing L5-S1 which is suboptimally visualized be. Remaining levels demonstrate mild to moderate disc degeneration and neural foraminal narrowing. Soft tissues: Overlying bowel gas pattern is normal. No suspicious soft tissue calcifications. IMPRESSION: 1. Limited exam secondary to patient's body habitus again demonstrating multilevel lumbar spine spondylosis which appears similar prior examination. Dictated by: Andrew Rivers Stephany Interpreted: Landon Dacosta MD on 02/12/2022 at 13:13 Transcribed by: BERNIE on 02/12/2022 at 13:15 Approved by: Landon Dacosta M.D. on 02/12/2022 at 17:40
--- NOTE | 2022-02-12 11:45 | DI.RAD.S_ITS ---
PROCEDURE: XR HIP W PEL IF DONE BILAT 2V INDICATIONS: low back pain and bilateral hip pain TECHNIQUE: AP pelvis with lateral view(s) of the bilateral hip(s). COMPARISON: None. FINDINGS: Bones: No fractures or dislocations. Pelvic ring appears intact. No suspicious bony lesions. Mild symmetric bilateral axial hip joint space narrowing. Degenerative disc and facet disease involves the inferior lumbar spine. Soft tissues: The visualized bowel gas pattern is normal. No suspicious soft tissue calcifications. IMPRESSION: Mild symmetric hip joint degeneration. Dictated by: Andrew Rivers [facility] Interpreted: Landon Dacosta MD on 02/12/2022 at 12:23 Transcribed by: BERNIE on 02/12/2022 at 12:28 Approved by: Landon Dacosta M.D. on 02/12/2022 at 17:40
== END ==
PROVIDERS: PCP Family Medicine; Referring Provider Internal Medicine Cardiovascular Disease; Visit Provider Internal Medicine Cardiovascular Disease
DX: M54.50 Low back pain, unspecified (principal); M25.551 Pain in right hip; M25.552 Pain in left hip; M16.0 Bilateral primary osteoarthritis of hip; M47.816 Spondylosis without myelopathy or radiculopathy, lumbar region
CPT/HCPCS: 72100; 73522

== ENCOUNTER → 2022-04-17 11:11 | Outpatient (CLI) | payer OTHER, MEDICAID, SELFPAY ==
[2022-04-18 08:13] LABS: BUN Creatinine Ratio 27.5 (6-22); Blood Urea Nitrogen 19 mg/dL (7-17); Calcium 11.5 mg/dL (8.4-10.2); Carbon Dioxide 26 mmol/L (22-32); Chloride 107 mmol/L (98-107); Cholesterol 128 mg/dL (140-199); Estimated Glomerular Filt Rate > 60 mL/min (>60); Glucose 69 mg/dL (70-100); HDL Cholesterol 42 mg/dL (40-60); HEMOLYSIS < 15 (0-50); LDL Cholesterol Calculated 54 mg/dL (<100); Potassium 3.9 mmol/L (3.4-5.1); Sodium 141 mmol/L (137-145); Triglycerides 159 mg/dL (35-150)
[2022-04-18 08:20] LABS: Hemoglobin A1C% w Est Avg Glu 5.4 % (4.0-6.0)
[2022-04-18 08:31] LABS: Vitamin D 25 Hydroxy (D3) 32.6 ng/mL (30.0-100.0)
== END ==
PROVIDERS: PCP Family Medicine; Visit Provider Family Medicine
DX: N39.0 Urinary tract infection, site not specified (principal); E11.9 Type 2 diabetes mellitus without complications; E78.2 Mixed hyperlipidemia; E83.52 Hypercalcemia; E89.2 Postprocedural hypoparathyroidism
CPT/HCPCS: 80048; 80061; 80305; 81002; 82306; 83036; 87086

== ENCOUNTER → 2022-07-09 13:09 | Outpatient (CLI) | payer OTHER, MEDICAID, SELFPAY ==
[2022-07-09 19:51] LABS: Albumin 3.6 g/dL (3.5-5.0); BUN Creatinine Ratio 24.2 (6-22); Blood Urea Nitrogen 15 mg/dL (7-17); Calcium 10.7 mg/dL (8.4-10.2); Carbon Dioxide 26 mmol/L (22-32); Chloride 111 mmol/L (98-107); Estimated Glomerular Filt Rate > 60 mL/min (>60); Glucose 107 mg/dL (70-100); HEMOLYSIS 18 (0-50); Magnesium 2.2 mg/dL (1.6-2.3); Phosphorous 2.6 mg/dL (2.5-4.5); Potassium 3.7 mmol/L (3.4-5.1); Sodium 143 mmol/L (137-145); Uric Acid 3.1 mg/dL (2.5-6.2)
[2022-07-09 20:42] LABS: Appearance Urine UA SL CLOUDY; Bilirubin Urine UA NEGATIVE (NEGATIVE); Color Urine UA YELLOW; Glucose Urine UA NEGATIVE (Negative); Ketones Urine UA NEGATIVE (NEGATIVE); Leukocyte Esterase Urine UA 1+ (NEGATIVE); Nitrite Urine UA NEGATIVE (Negative); Occult Blood Urine UA 3+ (Negative); Protein Urine UA TRACE (Negative); Urobilinogen Urine UA 0.2 E.U./dL (0.2)
[2022-07-09 21:31] LABS: RBC Urine 30-100/HPF (0-5/HPF); Squamous Epithelial Cell Urine 1-5 /HPF (0-5/HPF); WBC Urine 10-30/HPF (0-5/HPF)
[2022-07-09 21:32] LABS: Bacteria Urine Occasional (0-1); Culture Indicated Urine Specimen Cultured
[2022-07-12 08:51] LABS: Calcium 10.5 mg/dL (8.7-10.2); Parathyroid Hormone, Intact 45 pg/mL (15-65)
[2022-07-15 13:58] LABS: Immunoglobulin A, Serum 184 mg/dL (87-352); Immunoglobulin G,Serum 741 mg/dL (586-1602); Immunoglobulin M, Serum 34 mg/dL (26-217)
[2022-07-16 15:46] LABS: Albumin 3.3 g/dL (2.9-4.4); Alpha 1 Globulin 0.3 g/dL (0.0-0.4); Alpha 2 Globulin 0.8 g/dL (0.4-1.0); Beta 1 Globulin 0.9 g/dL (0.7-1.3); Gamma Globulin 0.7 g/dL (0.4-1.8); Protein, Total 6.1 g/dL (6.0-8.5)
[2022-07-21 16:51] LABS: 1,25-Dihydroxy, Vitamin D-2 <10 pg/mL (.)
== END ==
PROVIDERS: Internal Medicine Nephrology; PCP Family Medicine; Visit Provider Family Medicine
DX: E83.52 Hypercalcemia (principal); E89.2 Postprocedural hypoparathyroidism; R82.994 Hypercalciuria
CPT/HCPCS: 80048; 81001; 82040; 82310; 82397; 82652; 82784; 83735; 83970; 84100; 84155; 84165; 84550; 86334; 87086

== ENCOUNTER → 2022-08-27 11:22 | Outpatient (CLI) | payer OTHER, MEDICAID, SELFPAY ==
[2022-08-27 19:59] LABS: BUN Creatinine Ratio 22.1 (6-22); Blood Urea Nitrogen 21 mg/dL (7-17); Calcium 11.4 mg/dL (8.4-10.2); Carbon Dioxide 21 mmol/L (22-32); Chloride 109 mmol/L (98-107); Estimated Glomerular Filt Rate > 60 mL/min (>60); Glucose 143 mg/dL (70-100); HEMOLYSIS 19 (0-50); Potassium 3.9 mmol/L (3.4-5.1); Sodium 140 mmol/L (137-145)
[2022-08-28 21:40] LABS: x Labcorp Estim. Avg Glu (eAG) 111 mg/dL (.); x Labcorp Hemoglobin A1c 5.5 % (4.8-5.6)
== END ==
PROVIDERS: PCP Family Medicine; Visit Provider Family Medicine
DX: D75.1 Secondary polycythemia (principal); E11.9 Type 2 diabetes mellitus without complications; E78.2 Mixed hyperlipidemia; E83.52 Hypercalcemia; I10 Essential (primary) hypertension; I73.9 Peripheral vascular disease, unspecified; M48.061 Spinal stenosis, lumbar region without neurogenic claudication
CPT/HCPCS: 80048; 83036

== ENCOUNTER → 2022-12-03 11:34 | Outpatient (CLI) | payer OTHER, MEDICAID, SELFPAY ==
[2022-12-03 20:17] LABS: Add Manual Diff / Slide Review NO; Basophils Absolute Auto 100 /uL (0-100); Eosinophils Absolute Auto 300 /uL (0-450); Eosinophils Percent Auto 2.7 % (2-4); Hematocrit 46.6 % (36-46); Hemoglobin 15.9 g/dL (12.0-16.0); Lymphocytes Absolute Auto 2900 /uL (1100-4500); Mean Corpuscular HGB Conc 34.1 % (30-36); Mean Corpuscular Hemoglobin 32.6 PG (26-34); Mean Corpuscular Volume 95.5 fL (80-100); Monocytes Absolute Auto 800 /uL (0-900); Monocytes Percent Auto 8.4 % (3-14); Neutrophils Absolute Auto 5700 /uL (1500-7000); Neutrophils Percent Auto 57.9 % (50-75); Platelet Count 284 X10^3/uL (150-400); Red Blood Cell Count 4.88 X10^6/uL (4.0-5.2); Red Cell Distribution Width 14.5 % (11.6-14.8); White Blood Cell Count 9.8 X10^3/uL (4.5-11.0)
[2022-12-03 20:21] LABS: Hemoglobin A1C% w Est Avg Glu 5.2 % (4.0-6.0)
[2022-12-03 20:24] LABS: BUN Creatinine Ratio 18.6 (6-22); Blood Urea Nitrogen 13 mg/dL (7-17); Calcium 11.5 mg/dL (8.4-10.2); Carbon Dioxide 22 mmol/L (22-32); Chloride 110 mmol/L (98-107); Cholesterol 150 mg/dL (140-199); Estimated Glomerular Filt Rate > 60 mL/min (>60); Glucose 93 mg/dL (70-100); HDL Cholesterol 46 mg/dL (40-60); HEMOLYSIS 23 (0-50); LDL Cholesterol Calculated 75 mg/dL (<100); Potassium 4.1 mmol/L (3.4-5.1); Sodium 140 mmol/L (137-145); Triglycerides 147 mg/dL (35-150)
[2022-12-03 20:28] LABS: Vitamin D 25 Hydroxy (D3) < 12.8 ng/mL (30.0-100.0)
[2022-12-03 20:43] LABS: TSH w/ Reflex to FT4 1.21 uIU/mL (0.47-4.68)
[2022-12-07 04:50] LABS: Calcium 11.3 mg/dL (8.7-10.2); Parathyroid Hormone, Intact 57 pg/mL (15-65)
== END ==
PROVIDERS: PCP Family Medicine; Visit Provider Family Medicine
DX: Z68.38 Body mass index [BMI] 38.0-38.9, adult (principal); I73.9 Peripheral vascular disease, unspecified; D75.1 Secondary polycythemia; E03.9 Hypothyroidism, unspecified
CPT/HCPCS: 80048; 80061; 82306; 82310; 83036; 83970; 84443; 85025

== ENCOUNTER → 2022-12-31 11:57 | Outpatient (CLI) | payer OTHER, MEDICAID, SELFPAY ==
[2022-12-31 20:49] LABS: Creatinine Urine Random 62.7 mg/dL
[2022-12-31 20:53] LABS: Microalbumi Creatinin Ratio Ur 264.7 ug/mg CR (<30); Microalbumin Urine Random 16.6 mg/dL (0-1.6)
== END ==
PROVIDERS: PCP Family Medicine; Visit Provider Family Medicine
DX: E11.9 Type 2 diabetes mellitus without complications (principal)
CPT/HCPCS: 80305; 82043; 82570

== ENCOUNTER → 2023-02-25 14:03 | Outpatient (CLI) | payer OTHER, MEDICAID, SELFPAY ==
--- NOTE | 2023-02-25 14:30 | DI.CT.S_ITS ---
PROCEDURE: CT CHEST WO CON INDICATIONS: chronic cough and smoker TECHNIQUE: Noncontrast 5 mm thick sections acquired from the pulmonary apices to the posterior costophrenic angles. 1 mm lung window, 5 mm thick coronal and sagittal and 7 mm axial MIP reformats were then acquired. For radiation dose reduction, the following was used: automated exposure control, adjustment of mA and/or kV according to patient size. COMPARISON: CT, CT KIDNEY URETER BLADDER (KUB), 05/14/2019, 21:02. [facility], CT, CT ABDOMEN PELVIS WO/W CON, 04/25/2021, 11:45. FINDINGS: Image quality: Diagnostic. Lungs and pleura: No acute air space opacities. There is a 3 mm subpleural nodule in the superior medial aspect of the left upper lobe (series 3, image 57). No pleural effusions or pneumothorax. Central and peripheral airways are patent and normal in caliber. Mediastinum: Heart size is normal. No pericardial effusion. No mediastinal adenopathy by size criteria. Thoracic aorta and central pulmonary arteries are normal in size. Esophagus is normal in caliber. No hiatal hernia. Bones and chest wall: No suspicious bony lesions. No vertebral body compression fractures. Moderate degenerative disc and facet disease. No axillary or supraclavicular adenopathy by size criteria. No thyroid nodules which require sonographic follow up, per consensus guidelines. Upper Abdomen: Gallbladder is not visualized. There is pneumobilia, which was present on the prior abdominal CT dated 04/25/2021. Partial visualization of a 1.2 cm left adrenal nodule, likely a benign adrenal adenoma. IMPRESSION: 1. No acute cardiopulmonary process. 2. A 3 mm nodule in the superior medial aspect of the left upper lobe. Please see enclosed follow-up recommendation. 3. Mild coronary artery atherosclerosis. 4. Small hiatal hernia. Dictated by: Charis Valdovinos M.D. on 02/25/2023 at 21:29 Approved by: Charis Valdovinos M.D. on 02/26/2023 at 10:15
== END ==
PROVIDERS: PCP Family Medicine; Referring Provider Family Medicine; Visit Provider Family Medicine
DX: R05.9 Cough, unspecified (principal); R91.1 Solitary pulmonary nodule; I25.10 Atherosclerotic heart disease of native coronary artery without angina pectoris; K44.9 Diaphragmatic hernia without obstruction or gangrene; F17.200 Nicotine dependence, unspecified, uncomplicated
CPT/HCPCS: 71250

== ENCOUNTER 2023-05-05 09:31 | Day surgery (SDC) | payer OTHER, MEDICAID, SELFPAY ==
--- NOTE | 2023-05-05 | PATH_ITS ---
[facility] Accession Number: [id number] No. of containers..01 Tissue . 01 Material submitted: . colon - ASCENDING POLYP . 01 Diagnosis: ASCENDING COLON POLYP: Tubular adenoma. [facility] 05/07/2023 1132 Local . 01 Electronically signed: . Jean-Paul Marcos MD, PhD, Pathologist NPI- [id number] . 01 Gross description: . ASCENDING POLYP: Received in formalin is multiple fragment(s) of carrillo, soft tissue measuring 2.5 x 1.0 x 0.3 cm in aggregate submitted entirely in 1 cassette(s) /AAY 05/06/2023 0435 Local . 01 Pathologist provided ICD-10: D12.2 . 01 CPT . 431271 Specimen Comment: A courtesy copy of this report has been sent to [phone] Performed at: [address] [facility] [address] [place] [address], [place], [place] [id number] MD Rene Lang MD Phone: [phone]
[2023-05-05] MEDS: LACTATED RINGERS 1,000 ML 42 ML IV (09:59)
[2023-05-05 10:14] VITALS: BP 141/93; PULSE 78; RESP 18; TEMP 36.2; O2SAT 95
--- NOTE | 2023-05-05 10:37 | P.HP_ITS ---
History of Present Illness History of Present Illness Date Patient Seen: 05/05/23 Time Patient Seen: 10:37 Chief complaint: Colonoscopy Narrative: 58-year-old woman here for diagnostic colonoscopy following a Cologuard test. No previous colonoscopy. No family history of intestinal malignancy. No abdominal concerns today. [facility] Medical History Restless leg syndrome Ankle pain Herpes History of urinary incontinence Irritable bowel syndrome Tobacco use disorder Lumbar radiculopathy Right hip pain Chronic sciatica of right side Renal cancer Hyperparathyroidism Hx of malignant neoplasm of kidney Sciatica Surgical History History of right oophorectomy History of parathyroid surgery Family History Mother Hypertension Heart disease Cancer Social History occupational status: employed Smoking Status: Current every day smoker alcohol intake: never substance use type: marijuana Meds Home Medications and Allergies Home Medications Medication Instructions Recorded Confirmed Type naloxone 4 mg/actuation nasal spray 4 mg intranasal Q2M PRN opioid 09/25/21 05/05/23 Rx overdose #2 ea albuterol sulfate 90 mcg/actuation 2 puff inhalation Q4-6H PRN 03/12/22 05/05/23 Rx aerosol inhaler shortness of breath or wheezing #8.5 grams ezetimibe 10 mg tablet (Zetia) 10 mg PO DAILY #90 tabs 04/30/22 05/05/23 Rx losartan 25 mg tablet 25 mg PO DAILY #90 tabs 04/30/22 05/05/23 Rx buspirone 15 mg tablet 15 mg PO BID #180 tabs 07/10/22 05/05/23 Rx hydroxyzine HCl 25 mg tablet 25 mg PO BEDTIME #90 tabs 08/05/22 05/05/23 Rx aspirin 81 mg tablet,delayed 81 mg PO DAILY #90 tabs 08/21/22 05/05/23 Rx release oxybutynin chloride 15 mg 15 mg PO DAILY #90 tabs 09/22/22 05/05/23 Rx tablet,extended release 24 hr levothyroxine 50 mcg tablet See Rx Instructions .Route 11/18/22 05/05/23 Rx .COMPLEX #90 tabs atorvastatin 40 mg tablet 40 mg PO DAILY #90 tabs 12/30/22 05/05/23 Rx pen needle, diabetic 32 gauge x #100 ea 12/30/22 04/23/23 Rx 5/32 (BD Ultra-Fine Breanna Pen Needle) gabapentin 800 mg tablet See Rx Instructions .Route 01/26/23 05/05/23 Rx .COMPLEX #130 tabs metformin 500 mg tablet,extended 500 mg PO DAILY #90 tabs 01/26/23 05/05/23 Rx release 24 hr valacyclovir 500 mg tablet See Rx Instructions .Route 01/26/23 05/05/23 Rx .COMPLEX #60 tabs duloxetine 30 mg capsule,delayed 30 mg PO DAILY #90 caps 01/27/23 05/05/23 Rx release duloxetine 60 mg capsule,delayed 60 mg PO DAILY #90 caps 01/27/23 05/05/23 Rx release fluticasone 250 mcg-salmeterol 50 1 inh inhalation BID #60 ea 02/04/23 05/05/23 Rx mcg/dose blistr powdr for inhalation (Advair Diskus) topiramate 50 mg tablet 150 mg (3 x 50 mg) PO BID #180 tabs 03/04/23 05/05/23 Rx oxycodone-acetaminophen 10 mg-325 2 tab PO DAILY #56 tabs 03/11/23 05/05/23 Rx mg tablet (Percocet) liraglutide 0.6 mg/0.1 mL (18 mg/3 See Rx Instructions SUBCUT 03/16/23 05/05/23 Rx mL) subcutaneous pen injector .COMPLEX #9 mL (Victoza 3-Wes) fluticasone propionate 50 2 spray intranasal DAILY #16 grams 04/23/23 05/05/23 Rx mcg/actuation nasal spray,suspension (Flonase Allergy Relief) dextroamphetamine-amphetamine ER 10 mg PO DAILY #28 caps 04/30/23 05/05/23 Rx 10 mg 24hr capsule,extend release (Adderall XR) morphine 15 mg tablet,extended See Rx Instructions PO Q12H #56 05/01/23 05/05/23 Rx release tabs Allergies Allergy/AdvReac Type Severity Reaction Status Date / Time lisinopril Allergy Mild cough Verified 05/05/23 10:05 codeine [CODEINE] AdvReac Mild nausea/vomi Verified 05/05/23 10:05 ting TROSPIUM CHLORIDE Allergy MEMORY LOSS Uncoded 05/05/23 10:05 Exam Vital Signs (past 8 hours): - 05/05/23 10:14 Temperature 97.1 F L Pulse Rate 78 Respiratory Rate 18 Blood Pressure 141/93 H Pulse Oximetry 95 Oxygen Delivery Method Room Air Oxygen Delivery Method Room Air Narrative Exam Narrative: General adult woman alert oriented no acute distress Chest nonlabored respiration Extremities warm well perfused Assessment & Plan Assessment and plan (1) Positive colorectal cancer screening using Cologuard test: Status: Acute Assessment & Plan narrative: Diagnostic colonoscopy indicated following positive Cologuard test. Technical details were discussed. Risks, benefits, alternatives explained. Risks including but not limited to myocardial infarction, aspiration, bleeding, pain, missed lesion, incomplete examination, need for further radiographic studies, colonic perforation, and need for major abdominal surgery were discussed. All questions were answered to their satisfaction, and they are in agreement with this plan.
[2023-05-05 11:25] VITALS: BP 191/95; PULSE 75; RESP 13; TEMP 36.1; O2SAT 96
[2023-05-05 11:30] VITALS: BP 168/92; PULSE 70; RESP 13; O2SAT 97
--- NOTE | 2023-05-05 11:31 | P.OP.COLON_ITS ---
Operative Date/Time/Diagnoses Date of procedure: 05/05/23 Time of procedure: 11:32 Pre-op diagnosis: Positive Cologuard test Procedure & Clinicians Study performed: Colonoscopy and polypectomy Same procedure as scheduled: Yes Indications: Diagnostic colonoscopy for positive Cologuard test Surgeon: Brando Ruibo Procedure Notes Procedure in detail: The history and physical was performed/updated and the patient is ASA class is 2. The procedure was discussed in detail with the patient. Potential risks complications including infection, bleeding, missed diagnosis, perforation, need for surgery, and were explained. Their questions were answered and informed consent was obtained. Patient was brought to the procedure room and placed standard monitoring equipment. The patient's vital signs were monitored continuously throughout the entire procedure. Prior to starting time-out was performed. The patient was placed in the left lateral recumbent position. Procedural sedation was administered by anesthesia. Examination began with a thorough inspection of the perianal area there was no evidence of fissures, fistulae, external hemorrhoids or cutaneous malignancy. The colonoscopy scope was then placed into the anal canal and was advanced to the cecum, which was identified by the ileocecal valve, the appendiceal orifice and the confluence of the taenia. The scope was then slowly withdrawn examining colon thoroughly in all directions, irrigating it of any residual stool. The scope was retroflexed within the rectum The patient tolerated the procedure well. They will be discharged once criteria are met. The prep was of poor quality. The withdrawl time was 10 minutes. FINDINGS * Ascending colon 1 cm sessile polyp removed with cold snare. The area adjacent to the polyp was inked with tattoo. * Quality of the prep was poor and would limit identification of lesions less than 8 mm
[2023-05-05 11:35] VITALS: BP 160/78; PULSE 72; RESP 16; O2SAT 96
[2023-05-05 11:50] VITALS: BP 163/81; PULSE 70; RESP 14; O2SAT 98
== END 2023-05-05 12:04 | disposition home or self-care (01) ==
PROVIDERS: PCP Family Medicine; Referring Provider Surgery; Visit Provider Surgery
PROC: 0DJD8ZZ Inspection of Lower Intestinal Tract, Via Natural or Artificial Opening Endoscopic (ICD-10-PCS; CPT 45378; principal; 2023-05-05 10:15)
DX: Z12.11 Encounter for screening for malignant neoplasm of colon (principal); R19.5 Other fecal abnormalities; D12.2 Benign neoplasm of ascending colon
CPT/HCPCS: 45381; 45385; J2704

== ENCOUNTER → 2023-05-07 12:03 | Outpatient (CLI) | payer OTHER, MEDICAID, SELFPAY ==
[2023-05-07 19:32] LABS: BUN Creatinine Ratio 13.3 (6-22); Blood Urea Nitrogen 10 mg/dL (7-17); Calcium 10.8 mg/dL (8.4-10.2); Carbon Dioxide 19 mmol/L (22-32); Chloride 113 mmol/L (98-107); Estimated Glomerular Filt Rate > 60 mL/min (>60); Glucose 74 mg/dL (70-100); HEMOLYSIS 15 (0-50); Potassium 3.5 mmol/L (3.4-5.1); Sodium 139 mmol/L (137-145)
[2023-05-07 19:57] LABS: Vitamin D 25 Hydroxy (D3) 20.5 ng/mL (30.0-100.0)
[2023-05-12 00:08] LABS: Alder IgE <0.10 kU/L (Class 0); Alternaria alternata IgE <0.10 kU/L (Class 0); Aspergillus fumigatus IgE <0.10 kU/L (Class 0); Box Elder IgE <0.10 kU/L (Class 0); Cat Dander IgE <0.10 kU/L (Class 0); Cladosporium herbarum IgE <0.10 kU/L (Class 0); Cockroach IgE <0.10 kU/L (Class 0); Cottonwood IgE <0.10 kU/L (Class 0); D farinae IgE <0.10 kU/L (Class 0); D pteronyssinus IgE <0.10 kU/L (Class 0); Dog Dander IgE <0.10 kU/L (Class 0); Elm Tree IgE <0.10 kU/L (Class 0); IgE Mugwort <0.10 kU/L (Class 0); IgE Thistle,Russian <0.10 kU/L (Class 0); Immunoglobulin E 43 IU/mL (6-495); Mountain Cedar IgE <0.10 kU/L (Class 0); Mouse Urine Proteins IgE <0.10 kU/L (Class 0); Oak Tree IgE <0.10 kU/L (Class 0); Penicillium chrysogen IgE <0.10 kU/L (Class 0); Pigweed, Common IgE <0.10 kU/L (Class 0); Sheep Sorrel IgE <0.10 kU/L (Class 0); Silver Birch IgE <0.10 kU/L (Class 0); Timothy Grass IgE <0.10 kU/L (Class 0)
[2023-05-12 16:12] LABS: Calcium 10.4 mg/dL (8.7-10.2); Parathyroid Hormone, Intact 65 pg/mL (15-65)
== END ==
PROVIDERS: PCP Family Medicine; Visit Provider Family Medicine
DX: J30.9 Allergic rhinitis, unspecified (principal); E55.9 Vitamin D deficiency, unspecified; E89.2 Postprocedural hypoparathyroidism; E83.52 Hypercalcemia
CPT/HCPCS: 80048; 82306; 82310; 82785; 83970; 86003

== ENCOUNTER → 2023-06-05 13:29 | Outpatient (CLI) | payer OTHER, MEDICAID, SELFPAY | PROVIDERS: PCP Family Medicine; Visit Provider Family Medicine | DX: N39.0 Urinary tract infection, site not specified (principal); R10.9 Unspecified abdominal pain | CPT/HCPCS: 81002; 87086 ==

== ENCOUNTER → 2024-02-04 10:01 | Outpatient (CLI) | payer MEDICARE, MEDICAID, SELFPAY ==
[2024-02-04 19:00] LABS: Add Manual Diff / Slide Review NO; Basophils Absolute Auto 100 /uL (0-100); Basophils Percent Auto 1.2 % (0-2); Eosinophils Absolute Auto 300 /uL (0-450); Eosinophils Percent Auto 2.8 % (2-4); Hematocrit 41.8 % (36-46); Hemoglobin 14.1 g/dL (12.0-16.0); Lymphocytes Absolute Auto 3300 /uL (1100-4500); Lymphocytes Percent Auto 36.4 % (25-40); Mean Corpuscular HGB Conc 33.7 % (30-36); Mean Corpuscular Volume 97.9 fL (80-100); Monocytes Absolute Auto 700 /uL (0-900); Monocytes Percent Auto 8.3 % (3-14); Neutrophils Absolute Auto 4600 /uL (1500-7000); Neutrophils Percent Auto 51.3 % (50-75); Platelet Count 393 X10^3/uL (150-400); Red Blood Cell Count 4.27 X10^6/uL (4.0-5.2); Red Cell Distribution Width 14.9 % (11.6-14.8)
[2024-02-04 19:13] LABS: BUN Creatinine Ratio 18.3 (6-22); Blood Urea Nitrogen 15 mg/dL (7-17); Calcium 11.5 mg/dL (8.4-10.2); Carbon Dioxide 23 mmol/L (22-32); Chloride 114 mmol/L (98-107); Cholesterol 120 mg/dL (140-199); Estimated Glomerular Filt Rate > 60 mL/min (>60); Glucose 96 mg/dL (70-100); HDL Cholesterol 43 mg/dL (40-60); HEMOLYSIS < 15 (0-50); LDL Cholesterol Calculated 49 mg/dL (<100); Potassium 3.8 mmol/L (3.4-5.1); Sodium 138 mmol/L (137-145); Triglycerides 142 mg/dL (35-150)
[2024-02-04 19:19] LABS: Hemoglobin A1C% w Est Avg Glu 5.4 % (4.0-6.0)
[2024-02-04 19:30] LABS: Vitamin D 25 Hydroxy (D3) 63.5 ng/mL (30.0-100.0)
[2024-02-04 19:39] LABS: Creatinine Urine Random 40.12 mg/dL
[2024-02-04 19:41] LABS: TSH w/ Reflex to FT4 < 0.02 uIU/mL (0.47-4.68)
[2024-02-04 19:43] LABS: Microalbumin Urine Random 9.1 mg/dL (0-1.6)
[2024-02-04 20:00] LABS: Vitamin B12 615 pg/mL (239-931)
[2024-02-04 20:34] LABS: Free T4, Direct Thyroxine 1.06 ng/dL (0.78-2.19)
== END ==
PROVIDERS: PCP Family Medicine; Visit Provider Family Medicine
DX: F98.8 Other specified behavioral and emotional disorders with onset usually occurring in childhood and adolescence (principal); E11.9 Type 2 diabetes mellitus without complications; E78.2 Mixed hyperlipidemia; E83.52 Hypercalcemia; E03.9 Hypothyroidism, unspecified; I10 Essential (primary) hypertension; L65.9 Nonscarring hair loss, unspecified; M12.9 Arthropathy, unspecified; K59.00 Constipation, unspecified; G47.00 Insomnia, unspecified; F11.90 Opioid use, unspecified, uncomplicated; E55.9 Vitamin D deficiency, unspecified
CPT/HCPCS: 80048; 80061; 80305; 82043; 82306; 82570; 82607; 83036; 84439; 84443; 85025

== ENCOUNTER → 2024-03-10 13:40 | Outpatient (CLI) | payer MEDICARE, MEDICAID, SELFPAY ==
[2024-03-10 19:19] LABS: Prolactin 13.2 ng/mL (3.0-18.6)
[2024-03-10 19:30] LABS: TSH w/ Reflex to FT4 2.38 uIU/mL (0.47-4.68)
== END ==
PROVIDERS: PCP Family Medicine; Visit Provider Family Medicine
DX: E03.9 Hypothyroidism, unspecified (principal); E83.52 Hypercalcemia; N64.3 Galactorrhea not associated with childbirth
CPT/HCPCS: 82310; 83970; 84146; 84443

== ENCOUNTER → 2024-03-29 17:12 | Outpatient (CLI) | payer MEDICAID, MEDICARE, SELFPAY | PROVIDERS: PCP Family Medicine; Visit Provider Physician Assistant Medical | DX: N34.2 Other urethritis (principal); L73.9 Follicular disorder, unspecified | CPT/HCPCS: 87086 ==

== ENCOUNTER → 2024-05-17 10:43 | Outpatient (CLI) | payer MEDICARE, MEDICAID, SELFPAY ==
--- NOTE | 2024-05-17 10:47 | DI.MRI.S_ITS ---
PROCEDURE: MR LUMBAR SPINE WO CON INDICATIONS: low back pain, scoliosis, lumbar radiculopathy TECHNIQUE: Noncontrast sagittal T1 spin echo and T2 fast echo, sagittal STIR, and T2 fast spin echo through the lumbar spine. In cases with scoliosis, additional coronal T2 fast spin echo may be performed. COMPARISON: [facility], MR, MR LUMBAR SPINE WITHOUT CONTRAST, 12/03/2020, 7:44. [facility], CT, CT ABDOMEN PELVIS WO/W CON, 04/25/2021, 11:45. [facility], CR, XR LUMBAR SPINE 2-3V, 02/12/2022, 11:54. FINDINGS: Image quality: Excellent. Alignment and Curvature: Partial sacralization of L5. Trace anterolisthesis of L1 on L2. 5 mm anterolisthesis of L2 on L3. Trace anterolisthesis of L3 on L4. 3 mm retrolisthesis of L4 on L5. Very mild gentle levocurvature. This is centered at approximately T11. Bone Marrow: Marrow is of normal overall signal. No acute vertebral body compression fractures. Spinal Cord: Conus medullaris terminates at the L1 level. Question diffuse signal abnormality of the lower thoracic cord. Reference sagittal image 8 of series 2. Paraspinous Soft Tissues: No paravertebral masses. T12-L1: Normal appearance. L1-L2: Progressive moderate canal stenosis secondary to exuberant facet hypertrophy, trace anterolisthesis, and disc bulge. Reference axial image 13 of series 6. Moderate right foraminal narrowing. L2-L3: Progressive high-grade canal stenosis, secondary to exuberant facet and ligament hypertrophy, anterolisthesis, and posterior disc bulge. Reference axial image 18 of T2 series 6. No nerve root impingement. L3-L4: Stable findings. Severe disc height loss. Trace anterolisthesis. Mild canal stenosis. Moderate right foraminal stenosis. L4-L5: Stable findings. 3 mm retrolisthesis. Facet hypertrophy. Chronic focal left posterior disc osteophyte complex impinging on the left L5 nerve root in the left lateral recess. Reference sagittal T2 image 9 of series 2 and axial T2 image 27 of series 6. Mild bilateral foraminal stenosis. L5-S1: Partial sacralization of L5. No canal stenosis or foraminal stenosis. IMPRESSION: 1. Partial sacralization of L5. If surgery is planned on this patient, careful correlation for correct surgical level is required. 2. Question possible diffuse signal abnormality of the lower thoracic cord. 3. Using the numbering system above, there is progressive moderate canal stenosis at L1-L2 and progressive high-grade canal stenosis at L2-L3. Canal stenosis is mild at L3-L4. 4. At L4-L5, there is a chronic left posterior disc osteophyte complex which impinges on the left L5 nerve root in the left lateral recess. Comment: Recommend further evaluation of the thoracic cord utilizing thoracic MRI with and without contrast, including down to the level of the conus. Dictated by: Marquez Samson M.D. on 05/17/2024 at 13:58 Approved by: Marquez Samson M.D. on 05/17/2024 at 14:08
== END ==
PROVIDERS: PCP Family Medicine; Referring Provider Family Medicine; Visit Provider Family Medicine
DX: M54.16 Radiculopathy, lumbar region (principal); M48.061 Spinal stenosis, lumbar region without neurogenic claudication; M41.9 Scoliosis, unspecified; M43.27 Fusion of spine, lumbosacral region
CPT/HCPCS: 72148

== ENCOUNTER → 2024-07-06 10:49 | Outpatient (CLI) | payer MEDICARE, MEDICAID, SELFPAY ==
--- NOTE | 2024-07-06 10:51 | DI.CT.S_ITS ---
PROCEDURE: CT LUNG LOW DOSE SCREENING INDICATIONS: smoking history greater than 40 years TECHNIQUE: Noncontrast 2.0-2.5 mm thick sections acquired from the pulmonary apices to the posterior costophrenic angles. 7 mm thick axial MIP, and 5 mm coronal and sagittal reformats were then acquired. For radiation dose reduction, the following was used: automated exposure control, adjustment of mA and/or kV according to patient size. COMPARISON: [facility], CT, CT ABDOMEN PELVIS WO/W CON, 04/25/2021, 11:45. [facility], CT, CT CHEST WO CON, 02/25/2023, 14:09. FINDINGS: Image quality: Diagnostic. Lower Neck: No enlarged lymph nodes. Thyroid: No thyroid nodules which require sonographic follow up, per consensus guidelines. Axillae: No enlarged lymph nodes. Chest Wall: Unremarkable. Bones: Degenerative changes of the spine. Lungs and Pleura: No pneumothorax or pleural effusions. Stable 3 mm subpleural nodule at the left apex. Few small perifissural nodules, likely intrapulmonary lymph nodes are stable. No new or enlarging pulmonary nodules. Heart: Heart size is normal. Mild coronary artery calcifications. No pericardial effusion. Thoracic Vessels: The aorta and pulmonary arteries demonstrate normal size. Atherosclerotic vascular calcifications. Mediastinum and Evelia: No enlarged lymph nodes. Esophagus: No wall thickening. No hiatal hernia. Upper Abdomen: Biliary dilatation and pneumobilia is similar compared to prior. Partially visualized renal calcifications may represent medullary nephrocalcinosis, incompletely evaluated. IMPRESSION: 1. Stable small nodules as described above. No new or enlarging pulmonary nodules. 2. Partially visualized renal calcifications, may represent medullary nephrocalcinosis. This is incompletely evaluated on this exam. 3. Stable partially visualized biliary ductal dilatation and pneumobilia. LUNG-RADS to; continued annual screening, if eligible. Clinically Significant Non-pulmonary Findings: None. Dictated by: Rohith Del Rosario M.D. on 07/07/2024 at 12:50 Approved by: Rhoith Del Rosario M.D. on 07/07/2024 at 12:59
== END ==
PROVIDERS: PCP Family Medicine; Referring Provider Family Medicine; Visit Provider Family Medicine
DX: Z12.2 Encounter for screening for malignant neoplasm of respiratory organs (principal); F17.200 Nicotine dependence, unspecified, uncomplicated; R91.8 Other nonspecific abnormal finding of lung field; I25.10 Atherosclerotic heart disease of native coronary artery without angina pectoris; K83.8 Other specified diseases of biliary tract; N28.89 Other specified disorders of kidney and ureter
CPT/HCPCS: 71271

== ENCOUNTER → 2024-07-27 09:22 | Outpatient (CLI) | payer MEDICARE, OTHER, MEDICAID, SELFPAY ==
[2024-07-27 19:00] LABS: Add Manual Diff / Slide Review NO; Basophils Absolute Auto 100 /uL (0-100); Basophils Percent Auto 0.9 % (0-2); Eosinophils Absolute Auto 200 /uL (0-450); Eosinophils Percent Auto 1.9 % (2-4); Hematocrit 45.7 % (36-46); Hemoglobin 15.7 g/dL (12.0-16.0); Lymphocytes Absolute Auto 2700 /uL (1100-4500); Lymphocytes Percent Auto 26.7 % (25-40); Mean Corpuscular HGB Conc 34.4 % (30-36); Mean Corpuscular Hemoglobin 34.2 PG (26-34); Mean Corpuscular Volume 99.2 fL (80-100); Monocytes Absolute Auto 700 /uL (0-900); Monocytes Percent Auto 7.4 % (3-14); Neutrophils Absolute Auto 6300 /uL (1500-7000); Neutrophils Percent Auto 63.1 % (50-75); Platelet Count 346 X10^3/uL (150-400); Red Blood Cell Count 4.61 X10^6/uL (4.0-5.2); Red Cell Distribution Width 14.2 % (11.6-14.8)
[2024-07-27 19:02] LABS: BUN Creatinine Ratio 22.4 (6-22); Blood Urea Nitrogen 19 mg/dL (7-17); Calcium 11.7 mg/dL (8.4-10.2); Carbon Dioxide 22 mmol/L (22-32); Chloride 111 mmol/L (98-107); Cholesterol 149 mg/dL (140-199); Estimated Glomerular Filt Rate > 60 mL/min (>60); Glucose 82 mg/dL (70-99); HDL Cholesterol 46 mg/dL (40-60); HEMOLYSIS 22 (0-50); LDL Cholesterol Calculated 76 mg/dL (<100); Potassium 3.9 mmol/L (3.4-5.1); Sodium 139 mmol/L (137-145); Triglycerides 133 mg/dL (35-150)
[2024-07-27 19:32] LABS: TSH w/ Reflex to FT4 2.52 uIU/mL (0.47-4.68)
== END ==
PROVIDERS: PCP Family Medicine; Visit Provider Family Medicine
DX: E03.9 Hypothyroidism, unspecified (principal); F98.8 Other specified behavioral and emotional disorders with onset usually occurring in childhood and adolescence; E11.9 Type 2 diabetes mellitus without complications; E83.52 Hypercalcemia; E78.2 Mixed hyperlipidemia; I10 Essential (primary) hypertension; F11.90 Opioid use, unspecified, uncomplicated
CPT/HCPCS: 80048; 80061; 84443; 85025

== ENCOUNTER → 2024-09-06 14:31 | Outpatient (CLI) | payer OTHER, MEDICAID, SELFPAY | PROVIDERS: PCP Family Medicine; Visit Provider Physician Assistant | DX: R10.9 Unspecified abdominal pain (principal); R82.90 Unspecified abnormal findings in urine | CPT/HCPCS: 87086 ==

== ENCOUNTER 2024-09-07 09:15 | Emergency (ER) | payer OTHER, MEDICAID, SELFPAY ==
[2024-09-07] VITALS (15 sets, daily range): BP systolic 89–104; BP diastolic 51–61; PULSE 68–91; RESP 13; TEMP 36.7; O2SAT 7–99; BMI 25.4
--- NOTE | 2024-09-07 09:27 | ED_ITS ---
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 overdose) Qty: 2 0RF Rx Instructions: spray 1 dose into ONE nostril; alternate nostrils w each dose until help arrives aspirin 81 mg tablet,delayed release (DR/EC) 81 mg PO DAILY Qty: 90 3RF albuterol sulfate 90 mcg/actuation HFA aerosol inhaler 2 puff inhalation Q4-6H PRN (Reason: shortness of breath or wheezing) Qty: 8.5 2RF oxybutynin chloride 15 mg tablet extended release 24hr 15 mg PO DAILY Qty: 90 3RF cromolyn 4 % drops 1 drp EYE-BOTH QID Qty: 10 5RF losartan 25 mg tablet 25 mg PO DAILY Qty: 90 1RF valacyclovir 500 mg tablet See Rx Instructions .ROUTE .COMPLEX Qty: 60 3RF Dose Instruction: TAKE ONE TABLET BY MOUTH TWICE A DAY Rx Instructions: TAKE ONE TABLET BY MOUTH TWICE A DAY gabapentin 800 mg tablet See Rx Instructions .ROUTE .COMPLEX Qty: 130 3RF Dose Instruction: TAKE 1 AND (1/2) TABLETS BY MOUTH THREE TIMES A DAY Rx Instructions: TAKE 1 AND (1/2) TABLETS BY MOUTH THREE TIMES A DAY levothyroxine 50 mcg tablet 50 mcg PO DAILY Qty: 90 1RF morphine 15 mg tablet extended release See Rx Instructions PO Q12H Qty: 56 0RF Rx Instructions: TAKE ONE TABLET BY MOUTH EVERY 12 HOURS. Must last 28 days. Release date is 08/18/24 dextroamphetamine-amphetamine [Adderall XR] 20 mg capsule,extended release 24hr 20 mg PO DAILY Qty: 28 0RF Rx Instructions: Must last 28 days. Release date 08/18/24 duloxetine 60 mg capsule,delayed release(DR/EC) 60 mg PO DAILY Qty: 90 3RF Rx Instructions: Take in combination with 30mg dose to equal 90mg daily amount topiramate 100 mg tablet 150 mg PO BID Qty: 270 3RF duloxetine 30 mg capsule,delayed release(DR/EC) 30 mg PO DAILY Qty: 90 1RF diclofenac sodium 3 % gel 1 applic topical BID Qty: 100 0RF rosuvastatin [Crestor] 40 mg tablet 40 mg PO DAILY Qty: 90 3RF oxycodone-acetaminophen [Percocet] 10-325 mg tablet 2 tab PO DAILY Qty: 56 0RF Rx Instructions: Must last 28 days. Release date 09/05/24 ezetimibe [Zetia] 10 mg tablet 10 mg PO DAILY Qty: 90 3RF Ozempic 1 mg/dose (4 mg/3 mL) pen injector 1 mg SUBCUT QWEEK Qty: 3 4RF ciclopirox 8 % solution 1 applic topical BEDTIME 28 Days Qty: 6.6 5RF estradiol [Estrace] 0.01 % (0.1 mg/gram) cream 1 g vaginal 3XW Qty: 42.5 2RF Rx Instructions: for first week apply 1 1/2 inches of cream to urethra and vulva area once day and then can reduce use to 3x/week Referrals: Kavon Matamoros MD [Primary Care Provider, Family Practice]
--- NOTE | 2024-09-07 09:44 | PC.NURSE ---
Pt with h/o scoliosis and 100+ lb weight loss. reports LLQ pain and intense bloating. reports she has been on morphine and other narcs since the 's for her scoliosis and needs laxatives chronically to have bowel movements. Also reports she has been on ozempic for weight loss x 7months. Has not had BM in 4 days. Reports when she eats she vomits so her PO intake and been decreased. She is tender and firm on the LLQ. vitals WNL at this time.
[2024-09-07 09:50] LABS: Add Manual Diff / Slide Review NO; Basophils Absolute Auto 100 /uL (0-100); Basophils Percent Auto 0.4 % (0-2); Eosinophils Absolute Auto 100 /uL (0-450); Eosinophils Percent Auto 0.3 % (2-4); Hematocrit 45.9 % (36-46); Hemoglobin 15.3 g/dL (12.0-16.0); Lymphocytes Absolute Auto 1400 /uL (1100-4500); Lymphocytes Percent Auto 7.2 % (25-40); Mean Corpuscular HGB Conc 33.4 % (30-36); Mean Corpuscular Hemoglobin 33.6 PG (26-34); Mean Corpuscular Volume 100.7 fL (80-100); Monocytes Absolute Auto 1200 /uL (0-900); Monocytes Percent Auto 6.2 % (3-14); Neutrophils Absolute Auto 16200 /uL (1500-7000); Neutrophils Percent Auto 85.9 % (50-75); Platelet Count 292 X10^3/uL (150-400); Red Blood Cell Count 4.56 X10^6/uL (4.0-5.2); Red Cell Distribution Width 14.6 % (11.6-14.8); White Blood Cell Count 18.9 X10^3/uL (4.5-11.0)
[2024-09-07 10:00] LABS: Alanine Aminotransferase 51 IU/L (<35); Albumin Globulin Ratio 1.3 (1.0-2.8); Alkaline Phosphatase 76 U/L (38-126); Aspartate Aminotransferase 32 IU/L (14-36); BUN Creatinine Ratio 22.6 (6-22); Bilirubin Total 0.7 mg/dL (0.2-1.3); Blood Urea Nitrogen 24 mg/dL (7-17); Calcium 11.5 mg/dL (8.4-10.2); Carbon Dioxide 21 mmol/L (22-32); Chloride 108 mmol/L (98-107); Estimated Glomerular Filt Rate > 60 mL/min (>60); Globulin 3.1 g/dL (1.7-4.1); Glucose 94 mg/dL (70-99); HEMOLYSIS < 15 (0-50); Magnesium 1.9 mg/dL (1.6-2.3); Potassium 3.6 mmol/L (3.4-5.1); Sodium 138 mmol/L (137-145); Total Protein 7.1 g/dL (6.3-8.2)
--- NOTE | 2024-09-07 10:12 | DI.CT.S_ITS ---
PROCEDURE: CT ABDOMEN PELVIS W CON INDICATIONS: LLQ abd pain + lt flank TECHNIQUE: After the administration of intravenous contrast, axial sections acquired from the lung bases to the pubic symphysis. Coronal and sagittal reformats were performed. For radiation dose reduction, the following was used: automated exposure control, adjustment of mA and/or kV according to patient size. COMPARISON: [facility], CT, CT ABDOMEN PELVIS WO/W CON, 04/25/2021, 11:45. FINDINGS: Image quality: Diagnostic. Lower Chest: No significant findings. ABDOMEN: Liver: No solid mass. Gallbladder: Surgically absent. Biliary ducts: Significant pneumobilia with intra and extrahepatic biliary ductal dilatation. Pancreas: Pancreatic ductal dilatation. Calcifications of the head/uncinate process. Spleen: Size is within normal limits. Adrenal Glands: Left adrenal nodule measuring 2 cm appears mildly increased compared to prior. Kidneys and Ureters: Extensive bilateral renal calcifications including a stone within the left renal pelvis measuring 2.5 cm. Mild left hydronephrosis. Wall thickening of the left renal collecting system and proximal ureter. Stomach and Bowel: Normal colonic caliber, without significant wall thickening. Diverticulosis without evidence of acute diverticulitis. Normal appendix. Peritoneum: Mesenteric edema and fluid, most pronounced within the left upper quadrant adjacent to the pancreatic body/tail and left kidney.. No free air. Ventral Wall: No significant ventral hernia. Abdominal Nodes: No retroperitoneal or mesenteric adenopathy by size criteria. Vessels: Aorta and inferior vena cava are normal in size. Atherosclerotic vascular calcifications. PELVIS: Pelvic Organs: Unremarkable. Bladder: No bladder wall thickening, accounting for underdistention. Pelvic Nodes: No enlarged lymph nodes. Miscellaneous: No inguinal hernias are seen. Bones: No aggressive osseous abnormality. Degenerative changes of the spine and decreased osseous mineralization are redemonstrated. IMPRESSION: 1. Multiple bilateral renal stones, largest within the left collecting system/proximal ureter measuring 2.5 cm resulting in mild left hydronephrosis. 2. Wall thickening of the left renal collecting system and proximal ureter concerning for infection. Recommend correlation with urinalysis. 3. Extensive pneumobilia with intra and extrahepatic biliary ductal dilatation is redemonstrated. 4. Pancreatic ductal dilatation is new compared to prior measuring up to 6 mm proximally. Consider nonurgent pancreatic protocol MRI. 5. Moderate volume mesenteric fluid, most pronounced adjacent to the pancreatic body and tail and left kidney. Consider correlation for pancreatitis. 6. Left adrenal nodule measuring 2 cm is mildly more prominent than prior. 7. Please see above for additional findings. Dictated by: Rohith Del Rosario M.D. on 09/07/2024 at 11:40 Approved by: Rohith Del Rosario M.D. on 09/07/2024 at 11:48
[2024-09-07] MEDS: SODIUM CHLORIDE 0.9% 1,000 ML 1000 ML IV ×2 (10:31→13:30)
[2024-09-07] MEDS: MORPHINE 4 MG/ML INJ IV (10:31)
[2024-09-07] MEDS: ONDANSETRON 4 MG/2 ML INJ IV (10:32)
[2024-09-07 10:53] LABS: Lipase 15213 U/L (23-300)
[2024-09-07 12:07] LABS: Appearance Urine UA CLOUDY; Bilirubin Urine UA NEGATIVE (NEGATIVE); Color Urine UA YELLOW; Glucose Urine UA NEGATIVE (Negative); Ketones Urine UA NEGATIVE (NEGATIVE); Leukocyte Esterase Urine UA 2+ (NEGATIVE); Nitrite Urine UA NEGATIVE (Negative); Occult Blood Urine UA 3+ (Negative); Protein Urine UA 1+ (Negative)
[2024-09-07 12:22] LABS: RBC Urine 0-1/HPF (0-5/HPF); Urine Volume 10mL (spun); WBC Urine >100/HPF (0-5/HPF)
[2024-09-07 12:23] LABS: Amorphous Sediment Urine 1+; Bacteria Urine Few (2-10); Culture Indicated Urine Specimen Cultured; Squamous Epithelial Cell Urine 1-5 /HPF (0-5/HPF)
[2024-09-07] MEDS: cefTRIAXone 1,000 MG in SODIUM CHLORIDE 0.9% 100 ML 200 MG IV (12:37)
[2024-09-07] MEDS: HYDROMORPHONE 0.5 MG INJ IV (14:07)
== END 2024-09-07 18:52 | disposition short-term general hospital (02) ==
PROVIDERS: Emergency Provider Student in an Organized Health Care Education/Training Program; PCP Family Medicine
DX: N13.2 Hydronephrosis with renal and ureteral calculous obstruction (principal); K85.90 Acute pancreatitis without necrosis or infection, unspecified; Z87.442 Personal history of urinary calculi
CPT/HCPCS: 36415; 74177; 80053; 81001; 83605; 83690; 83735; 85025; 87040; 87077; 87086; 96361; 96365; 96375; 99284; J0696; J1171; J2270; J2405; Q9967

== ENCOUNTER → 2024-09-28 12:58 | Outpatient (CLI) | payer OTHER, MEDICAID, SELFPAY ==
[2024-09-28 20:54] LABS: Add Manual Diff / Slide Review NO; Hematocrit 39.0 % (36-46); Hemoglobin 12.7 g/dL (12.0-16.0); Lymphocytes Absolute Auto 2200 /uL (1100-4500); Mean Corpuscular HGB Conc 32.7 % (30-36); Mean Corpuscular Hemoglobin 33.1 PG (26-34); Mean Corpuscular Volume 101.3 fL (80-100); Platelet Count 434 X10^3/uL (150-400)
[2024-09-28 20:59] LABS: Alanine Aminotransferase 77 IU/L (<35); Albumin 3.2 g/dL (3.5-5.0); Albumin Globulin Ratio 1.1 (1.0-2.8); Alkaline Phosphatase 102 U/L (38-126); Amylase 187 U/L (30-110); Blood Urea Nitrogen 18 mg/dL (7-17); Calcium 10.9 mg/dL (8.4-10.2); Carbon Dioxide 23 mmol/L (22-32); Chloride 110 mmol/L (98-107); Estimated Glomerular Filt Rate > 60 mL/min (>60); Globulin 2.8 g/dL (1.7-4.1); Glucose 92 mg/dL (70-99); HEMOLYSIS 60 (0-50); Lipase 520 U/L (23-300); Sodium 140 mmol/L (137-145); Total Protein 6.0 g/dL (6.3-8.2)
[2024-09-28 21:00] LABS: Potassium 4.4 mmol/L (3.4-5.1)
== END ==
PROVIDERS: PCP Family Medicine; Visit Provider Family Medicine
DX: K85.80 Other acute pancreatitis without necrosis or infection (principal); N20.0 Calculus of kidney; Z96.89 Presence of other specified functional implants
CPT/HCPCS: 80053; 82150; 83690; 85025

== ENCOUNTER 2024-10-11 14:19 | Emergency (ER) | payer OTHER, MEDICAID, SELFPAY ==
[2024-10-11 15:17] VITALS: BP 115/56; PULSE 82; RESP 16; TEMP 37.2; O2SAT 98; BMI 25.0
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
--- NOTE | 2024-10-11 17:00 | PC.NURSE ---
Patient requesting for her nephrostomy bag to be replaced as it is leaking. Connection is a luer lock. Attempted to contact materials, called coordinator, called PACU, and attempted to call Urology to source bag with luer lock, unavailable at this hospital. Notified provider of situation and then notified and educated patient that we would be unable to fix due to not having a luer lock connected drain bag. Patient declining to be seen and leaving prior to provider evaluation to seek care elsewhere. Provider made aware. Will VDC.
== END 2024-10-11 17:05 | disposition left against medical advice (07) ==
PROVIDERS: Emergency Provider Student in an Organized Health Care Education/Training Program; PCP Family Medicine
CPT/HCPCS: 99281

== ENCOUNTER → 2024-11-17 14:30 | Outpatient (CLI) | payer OTHER, MEDICAID, SELFPAY ==
[2024-11-17 19:57] LABS: Bilirubin Urine UA NEGATIVE (NEGATIVE); Glucose Urine UA NEGATIVE (Negative); Ketones Urine UA NEGATIVE (NEGATIVE); Leukocyte Esterase Urine UA 3+ (NEGATIVE); Nitrite Urine UA POSITIVE (Negative); Occult Blood Urine UA 3+ (Negative); Protein Urine UA 2+ (Negative); Specific Gravity Urine UA 1.015 (1.000-1.035); Urobilinogen Urine UA 1.0 E.U./dL (0.2)
[2024-11-17 20:09] LABS: pH Urine UA 7.0 (4.5-8.0)
[2024-11-17 20:10] LABS: Appearance Urine UA CLOUDY; Color Urine UA RED
[2024-11-17 20:13] LABS: Culture Indicated Urine Specimen Cultured
== END ==
PROVIDERS: PCP Family Medicine
DX: N20.0 Calculus of kidney (principal)
CPT/HCPCS: 81001; 87077; 87086; 87186

== ENCOUNTER 2024-12-05 00:10 | Emergency (ER) | payer OTHER, MEDICAID, SELFPAY ==
[2024-12-05] VITALS (8 sets, daily range): BP systolic 92–135; BP diastolic 50–65; PULSE 69–84; RESP 16; TEMP 37.1; O2SAT 90–97; BMI 23.4
--- NOTE | 2024-12-05 00:36 | PC.NURSE ---
pt has nephrostomy is supposed to have surgery on Thu to reconnect the tube is d/t a large kidney stone. pt was seen at urology she was sent by urology here d/t the size of the stone and the difficulty removing it she started having bloody urine in her nephrostomy bag tonight on arrival pt's urine is noted dark merlene in color with no obvious blood
[2024-12-05 01:16] LABS: Appearance Urine UA TURBID; Bilirubin Urine UA NEGATIVE (NEGATIVE); Color Urine UA BROWN; Glucose Urine UA NEGATIVE (Negative); Ketones Urine UA NEGATIVE (NEGATIVE); Leukocyte Esterase Urine UA 3+ (NEGATIVE); Nitrite Urine UA POSITIVE (Negative); Occult Blood Urine UA 3+ (Negative); Protein Urine UA 2+ (Negative); Specific Gravity Urine UA 1.015 (1.000-1.035); Urobilinogen Urine UA 1.0 E.U./dL (0.2)
[2024-12-05 01:21] LABS: pH Urine UA 6.0 (4.5-8.0)
[2024-12-05 01:25] LABS: Culture Indicated Urine Specimen Cultured
[2024-12-05 01:36] LABS: Add Manual Diff / Slide Review NO; Hematocrit 39.4 % (36-46); Hemoglobin 13.3 g/dL (12.0-16.0); Lymphocytes Absolute Auto 3500 /uL (1100-4500); Mean Corpuscular HGB Conc 33.7 % (30-36); Mean Corpuscular Hemoglobin 31.3 PG (26-34); Mean Corpuscular Volume 92.7 fL (80-100); Platelet Count 379 X10^3/uL (150-400)
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
[2024-12-05 01:57] LABS: Alanine Aminotransferase 62 IU/L (<35); Albumin 3.7 g/dL (3.5-5.0); Albumin Globulin Ratio 1.1 (1.0-2.8); Alkaline Phosphatase 99 U/L (38-126); Blood Urea Nitrogen 18 mg/dL (7-17); Calcium 11.2 mg/dL (8.4-10.2); Carbon Dioxide 20 mmol/L (22-32); Chloride 112 mmol/L (98-107); Estimated Glomerular Filt Rate > 60 mL/min (>60); Globulin 3.3 g/dL (1.7-4.1); Glucose 126 mg/dL (70-99); HEMOLYSIS < 15 (0-50); Lipase 788 U/L (23-300); Potassium 3.1 mmol/L (3.4-5.1); Sodium 141 mmol/L (137-145); Total Protein 7.0 g/dL (6.3-8.2)
--- NOTE | 2024-12-05 02:16 | DI.CT.S_ITS ---
PROCEDURE: CT ABDOMEN PELVIS W CON INDICATIONS: hematuria, urostomy tube L TECHNIQUE: After the administration of intravenous contrast, axial sections acquired from the lung bases to the pubic symphysis. Coronal and sagittal reformats were performed. For radiation dose reduction, the following was used: automated exposure control, adjustment of mA and/or kV according to patient size. COMPARISON: [facility], CT, CT ABDOMEN PELVIS WITH CONTRAST, 09/15/2024, 3:08. [facility], CT, CT ABDOMEN PELVIS W CON, 09/07/2024, 10:05. FINDINGS: Image quality: Diagnostic. Lower Chest: No significant findings. ABDOMEN: Liver: No solid mass. Gallbladder: Absent. Biliary ducts: Biliary ductal dilatation. Pneumobilia is present. Pancreas: Findings of chronic calcific pancreatitis. Mild biliary ductal dilatation. No peripancreatic fluid collection, resolved. Transgastric axio stent remains in place, (). Spleen: Size is within normal limits. Adrenal Glands: Thickening of the left adrenal gland. Kidneys and Ureters: Mild left hydronephrosis, unchanged. Left percutaneous nephrostomy tube at the inferior pole. Multiple stones. Staghorn calculus at at the left renal collecting system measuring 2.4 cm. Left double-J ureteral stent. No left hydroureter. Left kidney inferior pole complicated cyst measuring 1.4 cm, (), unchanged. No right hydronephrosis. Multiple nonobstructing right kidney stones. Surgical clips adjacent to the right kidney. Stomach and Bowel: No diverticulitis. Normal appendix. Somewhat prominent stool in the colon. No small bowel obstruction. Fluid in the stomach. Peritoneum: No abnormal intraperitoneal fluid. No free air. Ventral Wall: No significant ventral hernia. Abdominal Nodes: No retroperitoneal or mesenteric adenopathy by size criteria. Vessels: Aorta and inferior vena cava are normal in size. No filling defect identified in the portal vein. PELVIS: Pelvic Organs: Retroverted uterus. Bladder: No bladder wall thickening, accounting for underdistention. Left ureter stent. Pelvic Nodes: No enlarged lymph nodes. Miscellaneous: No inguinal hernias are seen. Bones: No aggressive osseous abnormality. Multilevel DDD. IMPRESSION: 1. Mild left hydronephrosis. Left percutaneous nephrostomy tube and left double-J ureteral stent appear unchanged. Left staghorn like calculus measuring 2.4 cm. 2. Peripancreatic fluid collection is resolved. Transgastric Axio stent remains in place. 3. Similar mild pancreatic ductal dilatation. Similar biliary ductal dilatation in pneumobilia. Minor discrepancy with the overnight preliminary interpretation. The distal left ureteral stent is felt to be satisfactory on the coronal sagittal reformat images. If there is concern that the stent is within the ureter consider rescanning the pelvis with CT with a full urinary bladder. Dictated by: Landon Dacosta M.D. on 12/05/2024 at 8:13 Approved by: Landon Dacosta M.D. on 12/05/2024 at 8:41
[2024-12-05 03:20] LABS: Lactate (Lactic Acid) 1.1 mmol/L (0.7-2.1)
[2024-12-05 03:37] LABS: Procalcitonin 0.050 ng/mL (<0.5)
[2024-12-05] MEDS: POTASSIUM CHLORIDE IN WATER 10 MEQ/100 ML PIGGYBACK 100 MEQ IV ×2 (03:51→04:50)
[2024-12-05] MEDS: SODIUM CHLORIDE 0.9% 1,000 ML 1000 ML IV (04:00)
[2024-12-05] MEDS: POTASSIUM CHLORIDE 20 MEQ/15 ML UDC 40 MEQ PO (06:03)
== END 2024-12-05 06:36 | disposition home or self-care (01) ==
PROVIDERS: Emergency Provider Emergency Medicine; PCP Family Medicine
DX: R31.9 Hematuria, unspecified (principal); N39.0 Urinary tract infection, site not specified; N20.1 Calculus of ureter; E87.6 Hypokalemia; Z93.6 Other artificial openings of urinary tract status
CPT/HCPCS: 36415; 74177; 80053; 81001; 83605; 83690; 84145; 85025; 87040; 87077; 87086; 96365; 96366; 96367; 99284; J0696; Q9967

== ENCOUNTER → 2024-12-19 11:14 | Outpatient (CLI) | payer OTHER, MEDICAID, SELFPAY ==
[2024-12-19 18:55] LABS: Add Manual Diff / Slide Review NO; Hematocrit 40.4 % (36-46); Hemoglobin 13.5 g/dL (12.0-16.0); Lymphocytes Absolute Auto 2500 /uL (1100-4500); Mean Corpuscular HGB Conc 33.5 % (30-36); Mean Corpuscular Hemoglobin 31.9 PG (26-34); Mean Corpuscular Volume 95.2 fL (80-100); Platelet Count 369 X10^3/uL (150-400)
[2024-12-19 19:26] LABS: Alanine Aminotransferase 41 IU/L (<35); Albumin 3.6 g/dL (3.5-5.0); Albumin Globulin Ratio 1.2 (1.0-2.8); Alkaline Phosphatase 100 U/L (38-126); Amylase 165 U/L (30-110); Blood Urea Nitrogen 11 mg/dL (7-17); Calcium 11.0 mg/dL (8.4-10.2); Carbon Dioxide 21 mmol/L (22-32); Chloride 115 mmol/L (98-107); Estimated Glomerular Filt Rate > 60 mL/min (>60); Globulin 3.0 g/dL (1.7-4.1); Glucose 79 mg/dL (70-99); HEMOLYSIS 22 (0-50); Potassium 3.8 mmol/L (3.4-5.1); Sodium 140 mmol/L (137-145); Total Protein 6.6 g/dL (6.3-8.2)
[2024-12-19 19:54] LABS: TSH w/ Reflex to FT4 1.86 uIU/mL (0.47-4.68)
== END ==
PROVIDERS: PCP Family Medicine; Visit Provider Family Medicine
DX: I65.22 Occlusion and stenosis of left carotid artery (principal); E11.9 Type 2 diabetes mellitus without complications; R29.818 Other symptoms and signs involving the nervous system; E03.9 Hypothyroidism, unspecified; N95.2 Postmenopausal atrophic vaginitis; E89.2 Postprocedural hypoparathyroidism; E78.2 Mixed hyperlipidemia; I10 Essential (primary) hypertension
CPT/HCPCS: 80053; 82150; 84443; 85025

== ENCOUNTER → 2025-01-09 10:29 | Outpatient (CLI) | payer OTHER, MEDICAID, SELFPAY | PROVIDERS: PCP Family Medicine; Visit Provider Registered Nurse | DX: N20.0 Calculus of kidney (principal) | CPT/HCPCS: 87086 ==

== ENCOUNTER → 2025-01-11 04:30 | Outpatient (CLI) | payer OTHER, MEDICAID, SELFPAY ==
[2025-01-11 18:53] LABS: Appearance Urine UA CLOUDY; Bilirubin Urine UA NEGATIVE (NEGATIVE); Color Urine UA YELLOW; Glucose Urine UA NEGATIVE (Negative); Ketones Urine UA NEGATIVE (NEGATIVE); Leukocyte Esterase Urine UA 3+ (NEGATIVE); Nitrite Urine UA POSITIVE (Negative); Occult Blood Urine UA 2+ (Negative); Protein Urine UA TRACE (Negative); Specific Gravity Urine UA 1.010 (1.000-1.035); Urobilinogen Urine UA 0.2 E.U./dL (0.2)
[2025-01-11 18:57] LABS: pH Urine UA 6.5 (4.5-8.0)
[2025-01-11 19:06] LABS: Culture Indicated Urine Specimen Cultured
== END ==
PROVIDERS: PCP Family Medicine; Visit Provider Physician Assistant Surgical
DX: N20.0 Calculus of kidney (principal)
CPT/HCPCS: 81001; 87086

== ENCOUNTER → 2025-02-28 09:23 | Outpatient (CLI) | payer MEDICARE, MEDICAID, SELFPAY ==
[2025-02-28 18:53] LABS: Hemoglobin A1C% w Est Avg Glu 5.4 % (4.0-6.0)
== END ==
PROVIDERS: PCP Family Medicine; Referring Provider Family Medicine; Visit Provider Family Medicine
DX: E11.9 Type 2 diabetes mellitus without complications (principal); E78.2 Mixed hyperlipidemia; I10 Essential (primary) hypertension
CPT/HCPCS: 83036

== ENCOUNTER → 2025-03-02 10:55 | Outpatient (CLI) | payer MEDICAID, SELFPAY | PROVIDERS: PCP Family Medicine; Visit Provider Urology | DX: R39.9 Unspecified symptoms and signs involving the genitourinary system (principal) | CPT/HCPCS: 87086 ==